=== PATIENT | male | born 1950 | race Caucasian/White ===

== ENCOUNTER → 2017-03-07 | Outpatient (CLI) | payer MEDICARE, MEDICAID, SELFPAY | PROVIDERS: Visit Provider Nurse Practitioner Family | DX: J06.9 Acute upper respiratory infection, unspecified (principal); K52.9 Noninfective gastroenteritis and colitis, unspecified | CPT/HCPCS: 87275; 87276 ==

== ENCOUNTER → 2017-07-27 08:53 | Outpatient (POV) | payer MEDICARE, MEDICAID, SELFPAY ==
[2017-07-27 09:18] VITALS: BP 190/94; PULSE 68; RESP 18; O2SAT 97; BMI 38.4
--- NOTE | 2017-07-27 09:43 | HMH.PAINSOAP ---
[facility] Pain Management SOAP Note Subjective:: Patient is a pleasant 67-year-old white male who presents today with his caretakers. Patient has been having severe bilateral shoulder pain. 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 Patient has had intra-articular shoulder injections in the past which he reported 100% relief for almost a year. Patient is interested in repeating these injections. Patient and I had a discussion about the risks and benefits and he wishes to proceed. I answered all the questions for the wildlife forensic geneticist as well. Patient rates his pain a 7 out of 10 today. ROS General: no recent weight change, no fever, no sleep disturbances Respiratory: no cough, no shortness of air, no recurring pulmonary infections Cardiovascular/Peripheral Vascular: No chest pain, No palpitations, no edema, no shortness of breath. Musculoskeletal: Bilateral shoulder pain Psychiatric: normal mood/ affect Neurological: [denies weakness in extremities], [denies balance issues] Objective:: Physical Exam General: Alert and oriented x3, no acute distress, pleasant and cooperative, [on room air] Lungs: Resps E/U, Symmetrical chest expansion, Eyes: PERRL Musculoskeletal: Range of motion bilateral shoulders somewhat guarded secondary to pain, deep tendon reflexes normal, strength in upper and lower extremities [5/5], normal gait noted Neurological: speech clear, consulting actuary equal, no gross sensory deficits Assessment:: Degenerative osteoarthritis bilateral shoulders Plan:: We will schedule a bilateral intra-articular shoulder injection. Patient has done well with this in the past. I believe that this would be beneficial. I will follow-up with the patient after his injection. Patient is not currently on any anticoagulation therapy. Patient has tried and failed anti-inflammatories This note was dictated using voice recognition software and may contain errors or omissions
--- NOTE | 2017-07-27 09:47 | P.CONS_ITS ---
[facility] Pain Management SOAP Note Subjective:: Patient is a pleasant 67-year-old white male who presents today with his caretakers. Patient has been having severe bilateral shoulder pain. 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 Patient has had intra- articular shoulder injections in the past which he reported 100% relief for almost a year. Patient is interested in repeating these injections. Patient and I had a discussion about the risks and benefits and he wishes to proceed. I answered all the questions for the plant and instrument engineer as well. Patient rates his pain a 7 out of 10 today. ROS General: no recent weight change, no fever, no sleep disturbances Respiratory: no cough, no shortness of air, no recurring pulmonary infections Cardiovascular/Peripheral Vascular: No chest pain, No palpitations, no edema, no shortness of breath. Musculoskeletal: Bilateral shoulder pain Psychiatric: normal mood/ affect Neurological: [denies weakness in extremities], [denies balance issues] Objective:: Physical Exam General: Alert and oriented x3, no acute distress, pleasant and cooperative, [ on room air] Lungs: Resps E/U, Symmetrical chest expansion, Eyes: PERRL Musculoskeletal: Range of motion bilateral shoulders somewhat guarded secondary to pain, deep tendon reflexes normal, strength in upper and lower extremities [5 /5], normal gait noted Neurological: speech clear, missile technician equal, no gross sensory deficits Assessment:: Degenerative osteoarthritis bilateral shoulders Plan:: We will schedule a bilateral intra-articular shoulder injection. Patient has done well with this in the past. I believe that this would be beneficial. I will follow-up with the patient after his injection. Patient is not currently on any anticoagulation therapy. Patient has tried and failed anti- inflammatories This note was dictated using voice recognition software and may contain errors or omissions
== END ==
PROVIDERS: Family Provider Internal Medicine Adolescent Medicine; PCP Internal Medicine Adolescent Medicine; Visit Provider Clinical Nurse Specialist Family Health
DX: M19.012 Primary osteoarthritis, left shoulder (principal); M19.011 Primary osteoarthritis, right shoulder
CPT/HCPCS: 99212

== ENCOUNTER → 2017-08-17 11:37 | Outpatient (POV) | payer MEDICARE, MEDICAID, SELFPAY ==
[2017-08-17 11:47] VITALS: BP 185/87; PULSE 60; RESP 18; O2SAT 98; BMI 29.2
--- NOTE | 2017-08-17 12:24 | HMH.PAINSOAP ---
[facility] Pain Management SOAP Note Subjective:: Patient is a pleasant 67-year-old white male who presents today for follow-up after bilateral shoulder injections. Patient states he is doing very well. He rates his pain a 0 out of 10 today. Patient would like to follow-up on an as-needed basis. ROS General: no recent weight change, no fever, no sleep disturbances Respiratory: no cough, no shortness of air, no recurring pulmonary infections Cardiovascular/Peripheral Vascular: No chest pain, No palpitations, no edema, no shortness of breath. Gastrointestinal: no incontinence, normal bowel movements reported Genitourinary: no incontinence Musculoskeletal: Bilateral shoulder pain Psychiatric: normal mood/ affect Neurological: [denies weakness in extremities], [denies balance issues] Objective:: Physical Exam General: Alert and oriented x3, no acute distress, pleasant and cooperative, [on room air] Lungs: Resps E/U, Symmetrical chest expansion, Eyes: PERRL Musculoskeletal: Range of motion bilateral shoulders somewhat guarded secondary to pain, deep tendon reflexes normal, strength in upper and lower extremities [5/5], normal gait noted Neurological: speech clear, economics lecturer equal, no gross sensory deficits Assessment:: Bilateral shoulder pain with myofascial pain and degenerative arthritis Plan:: We will follow-up with this patient on an as-needed basis. This note was dictated using voice recognition software and may contain errors or omissions
== END ==
PROVIDERS: Family Provider Internal Medicine Adolescent Medicine; PCP Internal Medicine Adolescent Medicine; Visit Provider Clinical Nurse Specialist Family Health
DX: M19.012 Primary osteoarthritis, left shoulder (principal); M19.011 Primary osteoarthritis, right shoulder
CPT/HCPCS: 99212

== ENCOUNTER 2017-10-23 09:02 | Observation (INO) ==
--- NOTE | 2017-10-23 09:19 | Emergency Department Note ---
ED Disposition Clinical Impression: Community acquired pneumonia Qualifiers: Laterality: left Lung location: lower lobe of lung Qualified Code(s): J18.1 - Lobar pneumonia, unspecified organism Disposition: Still a Patient Condition on Discharge: Good Referrals: Tommy Schmidt MD [Primary Care Provider] - - Critical Care Critical Care Time: No Attestation: On , the high probability of a clinically significant, sudden or life threatening deterioration of the following system(s) required my full and direct attention, intervention and personal management. The time I documented below is in addition to time spent performing reported procedures but includes the following listed in this critical care notation. Medical Decision Making - Chin Inquiry Pt receiving controlled substance: No Vital Signs: 10/23/17 09:09 10/23/17 09:43 10/23/17 10:03 Temperature 98.3 F Temperature Source Oral Pulse Rate [Left Brachial] 113 H 107 H 69 Respiratory Rate 20 18 20 Blood Pressure [Right Arm] 158/97 143/87 100/56 Blood Pressure Mean [Right Arm] 117 105 70 Blood Pressure Source [Right Arm] Automatic Cuff Automatic Cuff Automatic Cuff Blood Pressure Position [Right Arm] Sitting Sitting Sitting 02 Sat by Pulse Oximetry 92 L 92 L 98 Oxygen Delivery Method Room Air Room Air Room Air 10/23/17 11:22 10/23/17 11:38 10/23/17 12:56 Temperature Temperature Source Pulse Rate [Left Brachial] 101 H 94 H 98 H Respiratory Rate 18 Blood Pressure [Right Arm] 153/87 154/78 154/78 Blood Pressure Mean [Right Arm] 109 103 103 Blood Pressure Source [Right Arm] Automatic Cuff Automatic Cuff Automatic Cuff Blood Pressure Position [Right Arm] Sitting Sitting Sitting 02 Sat by Pulse Oximetry 92 L 92 L 94 L Oxygen Delivery Method Room Air Room Air Room Air - Lab Data Lab Results 10/23/17 09:20: WBC 12.1 H, RBC 4.47 L, Hgb 14.6, Hct 45.2, MCV 101.2 H, MCH 32.7 H, MCHC 32.3, RDW 13.7, Plt Count 231, MPV 7.7, Neut % (Auto) 85.5 H, Lymph % (Auto) 7.3 L, [place] % (Auto) 4.9, Eos % (Auto) 1.9, Baso % (Auto) 0.3, Neut # (Auto) 10.4 H, Lymph # (Auto) 0.9, [place] # (Auto) 0.6, Eos # (Auto) 0.2, Baso # (Auto) 0.0, Total Counted 100, Neutrophils % (Manual) 63, Band Neutrophils % 12.0 H, Lymphocytes % (Manual) 17, Atypical Lymphs % 2.0, Monocytes % (Manual) 6, Platelet Estimate Normal, Anisocytosis 1+, Macrocytosis 1+ 10/23/17 09:20: D-Dimer 1460 H* 10/23/17 09:48: Sodium 142, Potassium 4.1, Chloride 105, Carbon Dioxide 30, Anion Gap 11.1, BUN 21 H, Creatinine 1.37 H, Estimated Creat Clear 55, Estimated GFR 52 L, Est GFR ( Amer) 63, Glucose 132 H, Calcium 8.4 L, Total Bilirubin 0.4, AST 13 L, ALT 17, Alkaline Phosphatase 75, Total Protein 7.2, Albumin 3.6, Globulin 3.6 H, Albumin/Globulin Ratio 1.0 L, Amylase 81, Lipase 171 10/23/17 09:48: Troponin I < 0.02 10/23/17 10:00: Stool Occult Blood Negative 10/23/17 10:40: Lactate 1.4 Result diagrams: 10/23/17 09:20 10/23/17 09:48 Orders (Tests/Meds): ED MEDICATIONS Generic Name Dose Route Start Last Admin Trade Name Freq PRN Reason Stop Dose Admin Azithromycin 500 mg/ Sodium 250 mls @ 250 mls/hr 10/23/17 10:15 Chloride IV 11/06/17 10:14 Q24H ANURAG Protocol Ceftriaxone Sodium 1 gm/ 50 mls @ 100 mls/hr 10/23/17 10:15 Sodium Chloride IV 11/06/17 10:14 Q24H ANURAG Protocol Sodium Chloride 3 ml 10/23/17 10:05 Sodium Chloride 3% 15ml Neb IH 11/22/17 10:04 ONCE PRN INDUCE SPUTUM COLLECTION Discontinued Medications Generic Name Dose Route Start Last Admin Trade Name Freq PRN Reason Stop Dose Admin Sodium Chloride 1,000 mls @ 999 mls/hr 10/23/17 09:15 10/23/17 09:21 Sod Chlor 0.9% 1000ml Bag IV 10/23/17 10:15 999 mls/hr .Q1H1M ANURAG Administration Iopamidol 75 ml 10/23/17 12:18 [id number]; 75ml Vial IV 10/23/17 12:19 ONCE ONE Protocol Ondansetron HCl 4 mg 10/23/17 09:14 10/23/17 09:21 Zofran 4mg/2ml Vial IV 10/23/17 09:15 4 mg ONCE ONE Administration Sodium Chloride 50 ml 10/23/17 12:18 10/23/17 12:20 Rad-Ns 50ml Vial IV 10/23/17 12:19 50 ml ONCE ONE Administration Sodium Chloride 10 ml 10/23/17 12:18 10/23/17 12:20 Rad-Saline Flush 10ml Syringe IV 10/23/17 12:19 10 ml ONCE ONE Administration ORDERS Category Date Time Status Urinalysis-Acute [Urinalysis and Microscopic] Stat Lab 10/23/17 09:16 Ordered Blood Culture Stat Micro 10/23/17 13:40 Received Sputum Culture & Gram Stain Stat Micro 10/23/17 10:05 Ordered - CT Data CT Scan: Chest Time Received: 10:[address] Reviewed: Yes: I have viewed the radiologist's interpretation Findings Narrative: Abomen/Pelvis: IMPRESSION: 1. Left lower lobe pneumonia with chronic changes in the lung bases and nonspecific nodular opacity within the lingula incompletely imaged. Consider outpatient chest CT without and with contrast for further evaluation of this nodule. Mild bronchiectasis right lung base 2. Moderate-sized hiatal hernia. 3. Colonic diverticulosis with mild amount retained colonic feces. No evidence of diverticulitis. 4. Mildly thickened urinary bladder with right-sided bladder diverticulum Dictated By: Nawaf Walsh MD Signed By: <Electronically signed by Nawaf Walsh MD in OV> 10/23/17 0956 - ECG Data Tracing #1 EKG interpreted by Dandy Crowe MD: Rhythm: sinus tachycardia Rate: 101 [place]: Right Ectopy: none Conduction: normal ST Segment Changes: none T Wave Changes: none Q Waves: none No evidence of acute ischemia or injury - Physician Consults Physician Consulted: Roxana Time: 13:48 Reason -: Admission Comment/Response: Agrees to admit the patient to the hospital. We discussed the patient's clinical information, including history, exam, laboratory and radiology results and ED course. Per hospital procedure, I will write temporary bridge inpatient orders on the patient. Specific orders requested by the admitting physician: Continue antibiotics General Adult HPI - General Chief complaint: Abdominal Pain Stated complaint: coughing up blood dizzy Time Seen by Provider: 10/23/17 09:19 Mode of Arrival: Ambulatory Limitations: No Limitations Description of Symptoms (Recalled from ER Triage Doc. by RN): Pt reports he vomitted in the middle of the night, stated had blood in vomit. Pt reports has been feeling dizzy this morning. Pt mother reports pt has been c/o intermittent pain in epigastric area and heartburn for several weeks - History of Present Illness HPI narrative: The patient is mentally disabled. He supplemented by mother and sister. Mother states that the patient told her that in the middle of the night he threw up blood or coughed up blood or spit up blood. She did not see it. He complained of some epigastric pain here. He is a historian of questionable reliability, but endorses chest pain. Mother states that he coughed in the waiting room and spit something into the trash can, she thinks it was phlegm. No demented fever. No diarrhea, hematochezia or hematemesis. He has a history of Verdugo's esophagus and GERD. He has had several upper endoscopies by Dr. Lane. - Related Data Home Medications Medication Instructions Recorded Confirmed Aspirin 81 mg PO DAILY 10/23/17 10/23/17 Erythromycin Base [Zhen-Tab 250mg 250 mg PO AC 10/23/17 10/23/17 tablet] Levothyroxine Sodium 25 mcg PO DAILY 10/23/17 10/23/17 [Levothyroxine 25mcg (0.025mg) Tab] Lisinopril [Lisinopril 5mg Tablet] 5 mg PO DAILY 10/23/17 10/23/17 Methylcellulose [Citrucel] 479 gm PO DAILY 10/23/17 10/23/17 Omeprazole [Omeprazole 20mg 20 mg PO DAILY 10/23/17 10/23/17 Capsule] Polyethylene Glycol 3350 [Miralax 17 gm PO DAILY 10/23/17 10/23/17 Powder] Primidone [Mysoline 50mg tablet] 200 mg PO BID 10/23/17 10/23/17 Propranolol HCl [Inderal 20mg 20 mg PO DAILY 10/23/17 10/23/17 tablet] miSOPROStol [Cytotec 200mcg tablet] 400 mcg PO DAILY 10/23/17 10/23/17 raNITIdine HCl [Ranitidine HCl] 150 mg PO DAILY 10/23/17 10/23/17 Allergies Allergy/AdvReac Type Severity Reaction Status Date / Time lactose AdvReac Verified 10/23/17 09:17 [facility] History I have reviewed the patient's past medical history: Yes Medical History: Reports:: Hypertension Denies:: Diabetes Mellitus Type 1, Diabetes Mellitus Type 2 Other Medical History: Reports: Arthritis, Hypothyroidism Other Surgeries: Yes: EGD - Social History Alcohol Intake: never Occupational Status: disabled Housing: house Household Members: other - Psychiatric History Expresses thoughts of harming self/others: None Suicide Plan Description: No Plan Family Hx:: Unable to obtain ROS Obtained: Yes All systems reviewed & no additional complaints - Constitutional Constitutional: Denies fever(s) - Cardiovascular Cardiovascular: Reports chest pain - Respiratory Respiratory: Yes as per HPI, No dyspnea - Gastrointestinal Gastrointestingal: Reports: as per HPI, abdominal pain Physical Exam - General General appearance: alert, in no apparent distress - Head Head exam: atraumatic, normocephalic, normal inspection - Eye Eye exam: Present: normal appearance, PERRL, EOMI - ENT ENT exam: Present: mucous membranes moist - Neck Neck exam: Present: normal inspection, full ROM, trachea midline. Absent: meningismus, lymphadenopathy - Chest Chest inspection: Present: normal inspection, symmetric chest wall rise. Absent : tenderness - Respiratory Respiratory exam: Present: normal lung sounds bilaterally. Absent: respiratory distress - Cardiovascular Cardiovascular exam: Present: regular rate, normal rhythm. Absent: JVD - Abdominal Exam Abdominal exam: Present: soft, tenderness, normal bowel sounds. Absent: distention, guarding, rebound, rigidity Abdominal tenderness: Present: epigastrium, mild - Rectal Exam Rectal exam: Present: normal rectal tone. Absent: black stool, fecal impaction , mass, tenderness - Extremities Exam Extremities exam: Present: normal inspection, full ROM, normal capillary refill. Absent: calf tenderness - Back Exam Back exam: Present: normal inspection. Absent: tenderness - Neurological Exam Neurological exam: Present: alert, CN II-XII intact. Absent: motor sensory deficit - Psychiatric Psychiatric exam: Present: normal affect, normal mood - Skin Skin exam: Present: warm, dry, intact, normal color
[2017-10-23 09:36] LABS: Basophils % 0.3 % (0.1-2.0); Eosinophils # 0.2 K/mm3 (0.0-0.4); Eosinophils % 1.9 % (0.1-12.0); Hematocrit 45.2 % (42.0-52.0); Hemoglobin 14.6 g/dL (14.1-18.0); Lymphocytes # 0.9 K/mm3 (0.7-4.5); Lymphocytes % 7.3 K/mm3 (10-50); Mean Corpuscular HGB Conc 32.3 g/dL (31.8-35.4); Mean Corpuscular Hemoglobin 32.7 pg (27.0-31.2); Mean Corpuscular Volume 101.2 fl (80-94); Mean Platelet Volume 7.7 fl (7.4-10.4); Monocytes # 0.6 K/mm3 (0.1-1.0); Monocytes % 4.9 % (1.7-9.3); Neutrophils # 10.4 K/mm3 (1.8-7.8); Neutrophils % 85.5 % (37.0-80.0); Platelet Count 231 K/mm3 (142-424); Red Blood Count 4.47 M/mm3 (4.60-6.20); Red Cell Distribution Width 13.7 % (11.5-17.5); White Blood Count 12.1 K/mm3 (4.8-10.8)
[2017-10-23 10:01] LABS: Lymphocytes % 17 % (10-50); Monocytes % 6 % (2-9); Neutrophils % 63 % (42-76); Total Cells Counted 100
[2017-10-23 10:03] LABS: Anisocytosis 1+; Macrocytosis 1+
[2017-10-23 10:08] LABS: Albumin Level 3.6 gm/dL (3.4-5.0); Anion Gap 11.1 mEq/L (5-15); Bilirubin,Total 0.4 mg/dL (0.2-1.0); Calcium 8.4 mg/dL (8.5-10.1); Globulin 3.6 gm/dl (1.3-3.2); Potassium 4.1 mmoL/L (3.5-5.1); Total Protein,Serum 7.2 gm/dL (6.4-8.2)
[2017-10-23 14:36] LABS: Microscopic, Urine URINE MICROSCOPIC (MICROSCOPIC)
[2017-10-23 14:40] LABS: Appearance,Urine CLEAR (Clear); Bilirubin,Urine Negative (Negative); Blood, Urine Negative (Negative); Color,Urine YELLOW (Yellow); Glucose,Urine (UA) Negative (Negative); Ketones,Urine Negative (Negative); Leukocyte Esterase,Urine Negative (Negative); PH,Urine 6.5 (5.0-8.5); Protein,Urine Negative (Negative); Specific Gravity, Urine <= 1.005 (1.005-1.030); Urobilinogen,Urine 0.2 EU/dl (0.2)
[2017-10-23 15:06] LABS: Bacteria,Urine Trace /lpf; WBC,Urine Occasional #/hpf (0-3)
--- NOTE | 2017-10-23 15:33 | Pharmacy Consult Notes ---
[facility] Pharmacy VTE Monitoring - Patient Demographics Admission date: 10/23/17 Report Date: 10/23/17 Time: 15:33 Allergies/Adverse Reactions: Patient Allergies lactose Adverse Reaction (Verified 10/23/17 09:17) Height: 1.65 m Weight: 73.057 kg Patient Problems: Current Active Problems Community acquired pneumonia (Acute) - VTE Risk Labs: VTE Related Lab Results Hgb 14.6 g/dL (14.1-18.0) 10/23/17 09:20 Hct 45.2 % (42.0-52.0) 10/23/17 09:20 Plt Count 231 K/mm3 (142-424) 10/23/17 09:20 BUN 21 mg/dL (7-18) H 10/23/17 09:48 Creatinine 1.37 mg/dL (0.70-1.30) H 10/23/17 09:48 Estimated Creat Clear 55 mL/min (0-300) 10/23/17 09:48 Clinical Trial Participant: No - Prophylaxis VTE Prophylaxis Ordered?: Yes Types of VTE Prophylaxis: TEDS Knee High
--- NOTE | 2017-10-24 08:06 | History & Physical Report ---
*Admission Date: 10/23/17 *Chief complaint: Coughing/vomiting *History of present illness: 67-year-old white male who suffers from significant intellectual disability, primary flower arranger is his mother along with his sisters, who woke up the morning of admission with nausea and stated that he coughed/vomited up some blood. Was found to have lower p.o. intake and normal and just felt poorly with complaints of chest pain and abdominal pain. Came to the emergency department. Significant workup ensued, ruling out significant intra-abdominal pathology on CT scan, no evidence of anemia was noted, guaiac-negative screw was noted, elevated d-dimer was noted which prompted a CTA of his chest which revealed no evidence of PE but did note the presence of a pneumonia. Patient was admitted to hospital for IV antibiotics for pneumonia, possible concern about aspiration. When I examined patient on the afternoon of admission he was feeling better and had no complaints of abdominal pain. Of note his family did not witness any episodes of hematemesis or hemoptysis. [facility] History I have reviewed the patient's past medical history: Yes Medical History: Reports:: Hypertension Denies:: Diabetes Mellitus Type 1, Diabetes Mellitus Type 2 Other Medical History: Reports: Arthritis, Hypothyroidism Comment: Congenital intellectual disability, mother is his guardian. Other Surgeries: Yes: EGD - *Social History Educational Level: Attended Grade School Smoking Status: Never smoker Alcohol Intake: never Occupational Status: disabled Housing: house Household Members: family, other - Psychiatric History Expresses thoughts of harming self/others: None Suicide Plan Description: No Plan *Family Hx:: No significant family history Review of Systems - Review of Systems Review of systems:: unable to obtain Patient really cannot give a detailed history. Review of systems from family and ER records Meds Home Medications Medication Instructions Recorded Confirmed Type Aspirin 81 mg PO DAILY 10/23/17 10/23/17 History Erythromycin Base [Zhen-Tab 250mg 250 mg PO AC 10/23/17 10/23/17 History tablet] Levothyroxine Sodium 37.5 mcg PO DAILY 10/23/17 10/23/17 History [Levothyroxine 25mcg (0.025mg) Tab] Lisinopril [Lisinopril 5mg Tablet] 5 mg PO DAILY 10/23/17 10/23/17 History Methylcellulose [Citrucel] 1 pack PO DAILY 10/23/17 10/23/17 History Omeprazole [Omeprazole 20mg 20 mg PO BID 10/23/17 10/23/17 History Capsule] Polyethylene Glycol 3350 [Miralax 17 gm PO DAILY 10/23/17 10/23/17 History Powder] Primidone [Mysoline 50mg tablet] 200 mg PO BID 10/23/17 10/23/17 History Propranolol HCl [Inderal 20mg 20 mg PO BID 10/23/17 10/23/17 History tablet] miSOPROStol [Cytotec 200mcg tablet] 400 mcg PO DAILY 10/23/17 10/23/17 History raNITIdine HCl [Ranitidine HCl] 150 mg PO HS 10/23/17 10/23/17 History Allergies Allergy/AdvReac Type Severity Reaction Status Date / Time lactose AdvReac Verified 10/23/17 09:17 Exam Vital signs and Labs for Last 24 Hours: Temp Pulse Resp BP Pulse Ox 97.8 F 80 18 125/64 93 L 10/24/17 03:55 10/24/17 03:55 10/24/17 03:55 10/24/17 03:55 10/24/17 05:15 Laboratory Results - last 24 hr 10/23/17 09:20: WBC 12.1 H, RBC 4.47 L, Hgb 14.6, Hct 45.2, MCV 101.2 H, MCH 32.7 H, MCHC 32.3, RDW 13.7, Plt Count 231, MPV 7.7, Neut % (Auto) 85.5 H, Lymph % (Auto) 7.3 L, [place] % (Auto) 4.9, Eos % (Auto) 1.9, Baso % (Auto) 0.3, Neut # (Auto) 10.4 H, Lymph # (Auto) 0.9, [place] # (Auto) 0.6, Eos # (Auto) 0.2, Baso # (Auto) 0.0, Total Counted 100, Neutrophils % (Manual) 63, Band Neutrophils % 12.0 H, Lymphocytes % (Manual) 17, Atypical Lymphs % 2.0, Monocytes % (Manual) 6, Platelet Estimate Normal, Anisocytosis 1+, Macrocytosis 1+ 10/23/17 09:20: D-Dimer 1460 H* 10/23/17 09:48: Sodium 142, Potassium 4.1, Chloride 105, Carbon Dioxide 30, Anion Gap 11.1, BUN 21 H, Creatinine 1.37 H, Estimated Creat Clear 55, Estimated GFR 52 L, Est GFR ( Amer) 63, Glucose 132 H, Calcium 8.4 L, Total Bilirubin 0.4, AST 13 L, ALT 17, Alkaline Phosphatase 75, Total Protein 7.2, Albumin 3.6, Globulin 3.6 H, Albumin/Globulin Ratio 1.0 L, Amylase 81, Lipase 171 10/23/17 09:48: Troponin I < 0.02 10/23/17 10:00: Stool Occult Blood Negative 10/23/17 10:40: Lactate 1.4 10/23/17 14:34: Urine Color Yellow, Urine Appearance Clear, Urine pH 6.5, Ur Specific [place] <= 1.005, Urine Protein Negative, Urine Glucose (UA) Negative, Urine Ketones Negative, Urine Blood Negative, Urine Nitrate Negative, Urine Bilirubin Negative, Urine Urobilinogen 0.2, Ur Leukocyte Esterase Negative, Urine RBC None, Urine WBC Occasional, Ur Squamous Epith Cells 5-10, Urine Bacteria Trace I & O for Last 24 hours: Intake & Output 10/21/17 10/22/17 10/23/17 10/24/17 11:59 11:59 11:59 11:59 Intake Total 1360 / 1360 Output Total 1300 / 1300 Balance 60 / 60 Weight 160 lb 161 lb 1 oz Narrative: Patient is pleasant, cooperative, alert. Oriented 2. Lungs are clear in the anterior solomon. In the posterior solomon has crackles in the right base. Abdomen soft and nontender, heart rate regular without murmurs. ENT exam shows clear oropharynx, no JVD. No scleral icterus. No edema or clubbing, able to move all extremities well. No cranial deficits. Assessment and Plan (1) Community acquired pneumonia Current visit: Yes Status: Acute Qualifiers: Laterality: left Lung location: lower lobe of lung Qualified Code(s): J18.1 - Lobar pneumonia, unspecified organism Category: Medical Code(s): J18.9 - Pneumonia, unspecified organism ER workup appreciated. Pneumonia certainly could be the cause of his problems. Admit, IV antibiotics. Supportive care. Follow closely in the hospital.
--- NOTE | 2017-10-24 08:20 | Progress Note ---
Internal Medicine - PN: Subj *Date: 10/24/17 *Time: 08:18 Interval history: Patient overall feels a little better, has had no further vomiting, mild cough. Ate about half of his breakfast this morning which is improved over last night intake. Oropharynx clear, lungs have rhonchi in both posterior solomon, good air movement. No wheezing. Heart rate regular, abdomen is very slightly tender but improved over yesterday' s exam, no edema. Exam Vital signs and Labs for Last 24 Hours: Temp Pulse Resp BP Pulse Ox 97.6 F 95 H 18 153/82 92 L 10/24/17 08:00 10/24/17 08:00 10/24/17 08:00 10/24/17 08:00 10/24/17 08:00 Laboratory Results - last 24 hr 10/23/17 09:20: WBC 12.1 H, RBC 4.47 L, Hgb 14.6, Hct 45.2, MCV 101.2 H, MCH 32.7 H, MCHC 32.3, RDW 13.7, Plt Count 231, MPV 7.7, Neut % (Auto) 85.5 H, Lymph % (Auto) 7.3 L, [place] % (Auto) 4.9, Eos % (Auto) 1.9, Baso % (Auto) 0.3, Neut # (Auto) 10.4 H, Lymph # (Auto) 0.9, [place] # (Auto) 0.6, Eos # (Auto) 0.2, Baso # (Auto) 0.0, Total Counted 100, Neutrophils % (Manual) 63, Band Neutrophils % 12.0 H, Lymphocytes % (Manual) 17, Atypical Lymphs % 2.0, Monocytes % (Manual) 6, Platelet Estimate Normal, Anisocytosis 1+, Macrocytosis 1+ 10/23/17 09:20: D-Dimer 1460 H* 10/23/17 09:48: Sodium 142, Potassium 4.1, Chloride 105, Carbon Dioxide 30, Anion Gap 11.1, BUN 21 H, Creatinine 1.37 H, Estimated Creat Clear 55, Estimated GFR 52 L, Est GFR ( Amer) 63, Glucose 132 H, Calcium 8.4 L, Total Bilirubin 0.4, AST 13 L, ALT 17, Alkaline Phosphatase 75, Total Protein 7.2, Albumin 3.6, Globulin 3.6 H, Albumin/Globulin Ratio 1.0 L, Amylase 81, Lipase 171 10/23/17 09:48: Troponin I < 0.02 10/23/17 10:00: Stool Occult Blood Negative 10/23/17 10:40: Lactate 1.4 10/23/17 14:34: Urine Color Yellow, Urine Appearance Clear, Urine pH 6.5, Ur Specific [place] <= 1.005, Urine Protein Negative, Urine Glucose (UA) Negative, Urine Ketones Negative, Urine Blood Negative, Urine Nitrate Negative, Urine Bilirubin Negative, Urine Urobilinogen 0.2, Ur Leukocyte Esterase Negative, Urine RBC None, Urine WBC Occasional, Ur Squamous Epith Cells 5-10, Urine Bacteria Trace I & O for Last 24 hours: Intake & Output 10/21/17 10/22/17 10/23/17 10/24/17 11:59 11:59 11:59 11:59 Intake Total 1600 / 1600 Output Total 1300 / 1300 Balance 300 / 300 Weight 160 lb 161 lb 1 oz Assessment and Plan (1) Community acquired pneumonia Current visit: Yes Status: Acute Qualifiers: Laterality: left Lung location: lower lobe of lung Qualified Code(s): J18.1 - Lobar pneumonia, unspecified organism Category: Medical Code(s): J18.9 - Pneumonia, unspecified organism Overall improving. Discharge tomorrow if remains stable. (2) Hiatal hernia Current visit: Yes Status: Acute Category: Medical Code(s): K44.9 - Diaphragmatic hernia without obstruction or gangrene Reviewing scans with family they are concerned about hiatal hernia causing a lot of symptoms and I agree with this. They wonder about surgical repair, and I have told him this would require evaluation with Dr. Gonsalves at [facility] which I will accomplish as an outpatient. Assuming he goes home tomorrow we will increase PPI and H2 elizabeth to twice daily to help with symptomatology and gastritis from the hiatal hernia. (3) Kyphoscoliosis Current visit: Yes Status: Acute Category: Medical Code(s): M41.9 - Scoliosis, unspecified This complicates his hiatal hernia issues and posture.
--- NOTE | 2017-10-25 08:12 | Discharge Summary ---
General - General Admission date:: 10/23/17 Discharge date: 10/25/17 HPI HPI: 67-year-old white male who suffers from significant intellectual disability, primary goat driver is his mother along with his sisters, who woke up the morning of admission with nausea and stated that he coughed/vomited up some blood. Was found to have lower p.o. intake and normal and just felt poorly with complaints of chest pain and abdominal pain. Came to the emergency department. Significant workup ensued, ruling out significant intra-abdominal pathology on CT scan, no evidence of anemia was noted, guaiac-negative screw was noted, elevated d-dimer was noted which prompted a CTA of his chest which revealed no evidence of PE but did note the presence of a pneumonia. Patient was admitted to hospital for IV antibiotics for pneumonia, possible concern about aspiration. When I examined patient on the afternoon of admission he was feeling better and had no complaints of abdominal pain. Of note his family did not witness any episodes of hematemesis or hemoptysis. Hospital Course Hospital Course: Patient was admitted and placed on antibiotics for treatment pneumonia. He quickly recovered and even by the evening of admission was doing better. He was continued on intravenous antibiotics and observe for additional 48 hours. By the morning of October 25 patient was feeling better. He denies shortness of breath. He did not have cough. He was eating without difficulty. Patient was discharged to home. Objective Vital signs: Temp Pulse Resp BP Pulse Ox 97.7 F 78 18 160/79 91 L 10/25/17 07:44 10/25/17 07:44 10/25/17 07:44 10/25/17 07:44 10/25/17 07:44 no acute distress - *Routine Respiratory Exam Present: CTA bilaterally - *Routine Cardiovascular Exam Present: RRR DS: Diagnosis - Discharge Diagnosis (1) Community acquired pneumonia Status: Acute (2) Hiatal hernia Status: Acute (3) Kyphoscoliosis Status: Acute Discharge Plan - Patient Discharge Instructions ACTIVITY: Continue current activity DIET: continue same diet - Follow up Plan Follow up with: Tommy Schmidt MD [Primary Care Provider] - 10/28/17 Disposition: Home, Self-Prison Medications: Home Medications Medication Instructions Recorded Confirmed Type Aspirin 81 mg PO DAILY 10/23/17 10/23/17 History Erythromycin Base [Zhen-Tab 250mg 250 mg PO AC 10/23/17 10/23/17 History tablet] Levothyroxine Sodium 37.5 mcg PO DAILY 10/23/17 10/23/17 History [Levothyroxine 25mcg (0.025mg) Tab] Lisinopril [Lisinopril 5mg Tablet] 5 mg PO DAILY 10/23/17 10/23/17 History Methylcellulose [Citrucel] 1 pack PO DAILY 10/23/17 10/23/17 History Omeprazole [Omeprazole 20mg 20 mg PO BID 10/23/17 10/23/17 History Capsule] Polyethylene Glycol 3350 [Miralax 17 gm PO DAILY 10/23/17 10/23/17 History Powder] Primidone [Mysoline 50mg tablet] 200 mg PO BID 10/23/17 10/23/17 History Propranolol HCl [Inderal 20mg 20 mg PO BID 10/23/17 10/23/17 History tablet] miSOPROStol [Cytotec 200mcg tablet] 200 mcg PO BID 10/23/17 10/24/17 History Prescriptions/Medication Reconciliation: New Cefdinir [Omnicef 300mg Capsule] 300 mg PO BID #14 cap Continue Lisinopril [Lisinopril 5mg Tablet] 5 mg PO DAILY Erythromycin Base [Zhen-Tab 250mg tablet] 250 mg PO AC Aspirin 81 mg PO DAILY Primidone [Mysoline 50mg tablet] 200 mg PO BID Polyethylene Glycol 3350 [Miralax Powder] 17 gm PO DAILY Omeprazole [Omeprazole 20mg Capsule] 20 mg PO BID miSOPROStol [Cytotec 200mcg tablet] 200 mcg PO BID Propranolol HCl [Inderal 20mg tablet] 20 mg PO BID Levothyroxine Sodium [Levothyroxine 25mcg (0.025mg) Tab] 37.5 mcg PO DAILY Methylcellulose [Citrucel] 1 pack PO DAILY Changed raNITIdine HCl [Ranitidine HCl] 300 mg PO BID #60 tab
== END 2017-10-25 09:57 | disposition home or self-care (01) ==
LOC: ER 09:02 → 2ND 09:02
PROVIDERS: ADMIT Internal Medicine Adolescent Medicine; ATTEND Internal Medicine Adolescent Medicine
CPT/HCPCS: 36415; 71020; 71046; 71275; 74176; 80053; 81001; 82150; 82272; 83605; 83690; 84484; 85007; 85025; 85378; 87040; 93005; 96365; 96375; 99285; G0328; G0378; J0456; J2405

== ENCOUNTER → 2018-02-05 08:53 | Outpatient (CLI) | payer MEDICARE, MEDICAID, SELFPAY ==
--- NOTE | 2018-02-05 08:56 | FL_ITS ---
FL upper GI w air HISTORY: ITS.REASON: DYSPHAGIA ORDERING PHYSICIAN: Ovidio Gonsalves PATIENT AGE: 67 years Comparison: None FINDINGS: There is a small medium sized sliding hiatal hernia. There was moderate amount of reflux during the exam. No mass or ulcer. The duodenum has an unremarkable appearance. IMPRESSION: Small to medium sized sliding hiatal hernia with moderate gastroesophageal reflux FLUOROSCOPY TIME : 1 minute and 42 seconds.
== END ==
PROVIDERS: PCP Internal Medicine Adolescent Medicine; Visit Provider Surgery
DX: R13.10 Dysphagia, unspecified (principal)
CPT/HCPCS: 74247

== ENCOUNTER → 2018-03-26 11:49 | Outpatient (CLI) | payer MEDICARE, MEDICAID, SELFPAY ==
[2018-03-26 14:18] LABS: Anion Gap 7.5 mEq/L (5-15); Blood Urea Nitrogen 20 mg/dL (7-18); Calcium 8.7 mg/dL (8.5-10.1); Carbon Dioxide 34 mmol/L (21.0-32.0); Chloride 104 mmol/L (98-107); Creatinine,Serum 1.23 mg/dL (0.70-1.30); Estimated Glomerular Filt Rate 59 ml/min (>60); GFR (African American) 71 ML/MIN (>60); Glucose 64 mg/dL (74-106); Potassium 4.5 mmoL/L (3.5-5.1); Sodium 141 mmol/L (136-145); Thyroid Stimulating Hormone 6.37 uIU/ml (0.358-3.740)
== END ==
PROVIDERS: Visit Provider Internal Medicine Adolescent Medicine
DX: E03.9 Hypothyroidism, unspecified (principal); I10 Essential (primary) hypertension
CPT/HCPCS: 36415; 80048; 84443

== ENCOUNTER → 2018-04-02 13:35 | Outpatient (CLI) | payer MEDICARE, MEDICAID, SELFPAY ==
--- NOTE | 2018-04-02 14:34 | CT_ITS ---
CT abdomen pelvis wo con CLINICAL INDICATION: ITS.REASON: HEMATURIA ORDERING PHYSICIAN: Tommy Schmidt MD PATIENT AGE: 67 years COMPARISON: 10/23/2017 TECHNIQUE: Axial images obtained with sagittal and coronal reformats. All CT scans at the facility use one or more dose reduction, viz: automated exposure control, ma/kV adjustment per patient size (including targeted exams where dose is matched to indication, i.e. head), or iterative reconstruction technique. PROCEDURE: Oral Contrast: None IV Contrast: None . FINDINGS: Lower thorax: There is a moderate-sized hiatal hernia. There is increasing consolidation/volume loss within the lingula as well atelectatic changes or fibrosis in the right lower lobe. There is moderate pneumobilia in this patient that has had prior cholecystectomy. No focal liver lesion is evident. The spleen, adrenal glands, and pancreas are unremarkable. No renal or ureteral calculi. No renal mass. No intestinal obstruction or free air. There is mild thickening of the urinary bladder wall with minimal stranding of the fat around the urinary bladder suggesting cystitis. Fluid density is present in the right pelvic region adjacent to the bladder measuring 3.4 cm consistent with a bladder diverticulum similar to the previous exam no pelvic mass apparent. No evidence of diverticulitis or appendicitis. There are multiple unopacified bowel loops present within the abdomen/pelvis which could obscure or mimic pathology. If symptoms persists, consider repeating exam with IV and oral contrast administration. There is mild retained colonic feces. There is sigmoid diverticulosis with redundant sigmoid colon. No acute bony anomalies IMPRESSION: 1. No renal or ureteral calculi or hydronephrosis. 2. Thickening of the urinary bladder with minimal stranding of fat around the urinary bladder suggesting cystitis with a right-sided bladder diverticulum 3. Moderate-sized hiatal hernia. 4. Increasing consolidation/volume loss within the lingula. Chest CT with contrast may be of further value to exclude central obstructing lesion. 5. Other nonacute findings as described above
[2018-04-02 14:35] LABS: Basophils # 0.1 K/mm3 (0-0.2); Basophils % 1.3 % (0.1-2.0); Eosinophils # 0.2 K/mm3 (0.0-0.4); Eosinophils % 3.9 % (0.1-12.0); Hematocrit 48.1 % (42.0-52.0); Hemoglobin 14.9 g/dL (14.1-18.0); Lymphocytes # 1.5 K/mm3 (0.7-4.5); Lymphocytes % 28.7 % (10-50); Mean Corpuscular Hemoglobin 32.2 pg (27.0-31.2); Mean Corpuscular Volume 103.6 fl (80-94); Mean Platelet Volume 8.3 fl (7.4-10.4); Monocytes # 0.3 K/mm3 (0.1-1.0); Monocytes % 6.5 % (1.7-9.3); Neutrophils % 59.5 % (37.0-80.0); Platelet Count 257 K/mm3 (142-424); Red Blood Count 4.64 M/mm3 (4.60-6.20)
== END ==
PROVIDERS: PCP Internal Medicine Adolescent Medicine; Visit Provider Internal Medicine Adolescent Medicine
DX: R31.9 Hematuria, unspecified (principal)
CPT/HCPCS: 36415; 74150; 74176; 85025

== ENCOUNTER → 2019-09-02 10:00 | Outpatient (CLI) | payer MEDICARE, MEDICAID, SELFPAY ==
[2019-09-02 10:38] LABS: Basophils # 0.1 K/mm3 (0-0.2); Basophils % 0.7 % (0.1-2.0); Eosinophils # 0.3 K/mm3 (0.0-0.4); Eosinophils % 3.3 % (0.1-12.0); Hematocrit 40.6 % (42.0-52.0); Hemoglobin 12.7 g/dL (14.1-18.0); Lymphocytes # 1.7 K/mm3 (0.7-4.5); Lymphocytes % 21.6 % (10-50); Mean Corpuscular HGB Conc 31.2 g/dL (31.8-35.4); Mean Corpuscular Volume 96.1 fl (80-94); Mean Platelet Volume 7.6 fl (7.4-10.4); Monocytes # 0.4 K/mm3 (0.1-1.0); Monocytes % 4.8 % (1.7-9.3); Neutrophils # 5.3 K/mm3 (1.8-7.8); Neutrophils % 69.6 % (37.0-80.0); Platelet Count 298 K/mm3 (142-424); Red Blood Count 4.22 M/mm3 (4.60-6.20); White Blood Count 7.6 K/mm3 (4.8-10.8)
[2019-09-02 11:26] LABS: Chloride 102 mmol/L (98-107); Potassium 4.7 mmoL/L (3.5-5.1); Sodium 138 mmol/L (136-145)
[2019-09-02 11:28] LABS: Alanine Aminotransferase 12 U/L (12-78); Aspartate Amino Transferase 27 U/L (17-59); Blood Urea Nitrogen 21 mg/dl (9-20); Estimated Glomerular Filt Rate 60 ml/min (>60); GFR (African American) 73 ML/MIN (>60)
[2019-09-02 11:29] LABS: Albumin Level 4.4 g/dl (3.5-5.0); Albumin/Globulin Ratio 1.3 (1.1-1.8); Alkaline Phosphatase 66 U/L (38-126); Anion Gap 7.7 mEq/L (5-15); Bilirubin,Total 0.4 mg/dl (0.2-1.3); Calcium 11.3 mg/dl (8.4-10.2); Carbon Dioxide 33 mmol/L (22.0-30.0); Globulin 3.3 g/dL (1.3-3.2); Glucose 87 mg/dl (74-100); Lipase 164 U/L (23-300); Total Protein,Serum 7.7 g/dl (6.3-8.2)
[2019-09-02 12:00] LABS: Thyroid Stimulating Hormone 4.87 uIU/mL (0.465-4.68)
== END ==
PROVIDERS: Visit Provider Internal Medicine Adolescent Medicine
DX: I10 Essential (primary) hypertension (principal); E03.9 Hypothyroidism, unspecified; K21.9 Gastro-esophageal reflux disease without esophagitis
CPT/HCPCS: 36415; 80053; 83690; 84443; 85025

== ENCOUNTER → 2019-10-07 09:30 | Outpatient (CLI) | payer MEDICARE, MEDICAID, SELFPAY ==
[2019-10-07 10:52] LABS: Coronavirus 19 IgG Antibody Negative (Negative); Coronavirus 19 IgM Antibody Negative (Negative)
== END ==
PROVIDERS: Visit Provider Internal Medicine Gastroenterology
DX: Z01.818 Encounter for other preprocedural examination (principal)
CPT/HCPCS: 36415; 86328

== ENCOUNTER 2019-10-10 08:07 | Day surgery (SDC) | payer MEDICARE, MEDICAID, SELFPAY ==
[2019-10-05 13:27] VITALS: BMI 28.3
[2019-10-10] VITALS (7 sets, daily range): BP systolic 106–186; BP diastolic 59–93; PULSE 66–77; RESP 16–18; TEMP 36.4–36.6; O2SAT 95–99
--- NOTE | 2019-10-10 08:40 | P.PN_ITS ---
[facility] Anesthesia Checklist - Structural Data Admitted From: Home Planned Operative Procedure/s: egd Consent for Planned Operative Procedure(s) Verified: Yes - Additional verifications Anesthesia Reactions: No Hx Blood Transfusions: No Blood Transfusion Reaction: No - Anesthesia Plan Anesthesia Risk discussed: Yes Anesthesia Plan: Verified ASA Class: II Anesthesia Type: MAC [facility] History Medical History: Reports:: Gastroesophageal Reflux Disease(GERD), Hyperlipidemia, Hypertension Denies:: Cancer, Diabetes Mellitus Type 1, Diabetes Mellitus Type 2, Internal Pacemaker, MRSA, Seizures *Have you ever received a pneumonia vaccine?: Yes *Have you received a flu vaccine this season?: Yes Other Medical History: Reports: Arthritis, Hypothyroidism, Thyroid Disease, Other. Denies: Blood Transfusion Reaction Anesthesia experience/problems:: none Laterality Cases: Bilateral: Other Other Surgeries: Yes: Cholecystectomy, Colonoscopy, EGD, Other. No: Pacemaker Amputation: No Fractures: No - *Social History Last grade of school completed: 4th or less Smoking Status: Never smoker Alcohol Intake: never Substance Use Type: denies use *Occupational Status:: disabled Housing: house Household Members: family, caregiver *Travel in the last 8 weeks: None Family Hx:: Cancer, Diabetes, Hyperlipidemia, Heart Attack, Hypertension, Thyroid Disorder
--- NOTE | 2019-10-10 09:09 | HMH.PROC ---
[facility] Procedure Note Procedure Note:: Upper Endoscopy Procedure Report: Esophagogastroduodenoscopy with cold biopsies Endoscopost: Anthony Lane II, MD Referring Physician: Tommy Schmidt M.D. Date of Procedure: October 10, 2019 Equipment: Olympus GIF 180 standard upper endoscope Sedation: MAC sedation Indications: Mr. Browning is a 69-year-old gentleman who had Verdugo's esophagus diagnosed in May 2016 and biopsies at that time were indeterminate for dysplasia. He did have a repeat EGD in November 2016 and again biopsies were indefinite for dysplasia. The patient is on long-term PPI therapy (omeprazole 20 mg orally daily). His recent lab work showed hemoglobin 12.7 and hematocrit 40.6. The patient has no other abdominal complaints. Procedure: Prior to the procedure, a history and physical exam was performed, and patient's medications and allergies were reviewed. The risks, benefits and alternatives of the sedation and procedure were discussed with the patient. All questions were answered and informed consent was obtained. The patient was brought to the procedure room. Patient identification and proposed procedure were verified by the physician and the nurse. The patient was placed in a left lateral decubitus position and the scope was passed under direct vision. Throughout the procedure, the patient's blood pressure, pulse, and oxygen saturations were monitored continuously. The upper GI endoscopy was accomplished without difficulty. The patient tolerated the procedure well. Findings: The scope was passed directly into the upper esophagus and advanced to the third portion of the duodenum. The post bulbar duodenum and duodenal bulb were normal with normal mucosa and conniventes. The scope was withdrawn through a normal duodenal bulb and pylorus into the stomach. There was mild linear reactive gastropathy of the antrum. The remainder of the antrum, body and fundus of the stomach were grossly normal. Upon retroflexion there was a 4 cm hiatal hernia. The diaphragmatic hiatus was at 39 cm from the incisors. The gastroesophageal junction was at 35 cm from the incisors. The squamocolumnar junction/Z line was at 29/30 cm. There was a 5 to 6 cm segment of Verdugo's esophagus ([place] classification C5M6). Biopsies were taken at 33 cm and 31 cm from the incisors. Narrowband imaging was utilized and there was no evidence of any dysplastic appearing mucosa. There was no evidence of reflux esophagitis or strictures. The remainder of the esophageal mucosa was normal. Impression: 1. Verdugo's esophagus (5 to 6 cm) with [place] classification C5M6 2. Hiatal hernia (4 cm) medium sized Plan: I will follow-up the biopsies. The patient did have indeterminate for dysplasia previously but NBI did not identify evidence of dysplasia. Histologic findings will be more definitive. I would continue PPI therapy. We will determine surveillance (3 years) based upon no dysplasia on biopsies.
== END 2019-10-10 10:15 | disposition home or self-care (01) ==
PROVIDERS: PCP Internal Medicine Adolescent Medicine; Visit Provider Internal Medicine Gastroenterology
PROC: 0DJ08ZZ Inspection of Upper Intestinal Tract, Via Natural or Artificial Opening Endoscopic (ICD-10-PCS; CPT 43235; principal; 2019-10-10 09:30)
DX: K22.711 Barrett's esophagus with high grade dysplasia (principal); K44.9 Diaphragmatic hernia without obstruction or gangrene; E78.5 Hyperlipidemia, unspecified; I10 Essential (primary) hypertension; K21.9 Gastro-esophageal reflux disease without esophagitis; M19.90 Unspecified osteoarthritis, unspecified site; E03.9 Hypothyroidism, unspecified; Z90.49 Acquired absence of other specified parts of digestive tract; Z83.3 Family history of diabetes mellitus; Z82.49 Family history of ischemic heart disease and other diseases of the circulatory system; Z83.438 Family history of other disorder of lipoprotein metabolism and other lipidemia; Z83.49 Family history of other endocrine, nutritional and metabolic diseases
CPT/HCPCS: 43239; 88305

== ENCOUNTER 2019-11-12 09:00 | Emergency (ER) | payer MEDICARE, MEDICAID, SELFPAY ==
[2019-11-12 09:01] VITALS: BP 185/87; PULSE 88; RESP 14; TEMP 36.4; O2SAT 94; BMI 27.4
--- NOTE | 2019-11-12 09:02 | HMH.EDSYNC ---
ED Disposition Clinical Impression: Benign positional vertigo Qualifiers: Laterality: unspecified laterality Qualified Code(s): H81.10 - Benign paroxysmal vertigo, unspecified ear Disposition: Home, Self-Care Condition on Discharge: Good Prescriptions: Meclizine HCl [Meclizine 25mg Tab] 25 mg PO TID PRN #15 tab PRN Reason: Vertigo Prescription Printed Ondansetron [Zofran 4mg ODT] 4 mg PO Q6 PRN #10 tab.rapdis PRN Reason: Nausea Prescription Printed Referrals: Tommy Schmidt MD [Primary Care Provider] - 3 days - Critical Care Critical Care Time: No Attestation: On , the high probability of a clinically significant, sudden or life threatening deterioration of the following system(s) required my full and direct attention, intervention and personal management. The time I documented below is in addition to time spent performing reported procedures but includes the following listed in this critical care notation. Medical Decision Making - Medical Records Medical records reviewed: Yes: I reviewed the patient's medical records. - Chin Inquiry Pt receiving controlled substance: No Medical Decision Narrative: Patients with symptomology consistent with peripheral cause of vertigo rather than central. No cerebellar signs on exam. Tremor is baseline and he is able to [id number] and [id number] accurately. He is vertigo is only positional. I discussed extensively return precautions with mother who will be able to stay with the patient and return for any changes in symptoms. No recent illnesses that would prompt work-up for metabolic derangement, anemia. Given meclizine and Zofran, discharged home with prescription for the same. Advised follow-up with primary care provider in the next 2 to 3 days for reevaluation. Syncope HPI - General Stated Complaint: passed out 3 times this am Time Seen by Provider: 11/12/19 09:02 Mode of Arrival: Ambulatory Source of Information: Patient, Relative Limitations: No Limitations - History of Present Illness HPI narrative: 69-year-old male with a past medical history significant for mild mental retardation, hypertension, HLD, GERD, hypothyroid who presents to the emergency department for evaluation of vertigo that started yesterday evening. Patient has had several falls after getting up and walking, becoming dizzy and nauseous. Initially this was reported as syncope, but no loss of consciousness was ever witnessed and patient simply falls from feeling dizzy. He denies any chest pain, shortness of breath, recent fevers vomiting or diarrhea. His mother who accompanies him states that he has been eating and drinking well and has been in his baseline health. He does have a tremor and this is baseline for him. Patient states that he is dizzy primarily with movement and it gets better when sitting still. No visual changes, other lateralizing motor or sensory changes. - Related Data Home Medications Medication Instructions Recorded Confirmed Aspirin 81 mg PO DAILY 10/23/17 10/20/19 Methylcellulose [Citrucel] 1 pack PO DAILY 10/23/17 10/20/19 Omeprazole [Omeprazole 20mg 20 mg PO BID 10/23/17 10/20/19 Capsule] Primidone [Mysoline 50mg tablet] 200 mg PO BID 10/23/17 10/20/19 lisinopriL [Lisinopril 5mg 5 mg PO DAILY 10/23/17 10/20/19 Tablet] miSOPROStoL [Cytotec 200mcg tablet] 200 mcg PO BID 10/23/17 10/20/19 polyethylene glycoL 3350 [Miralax 17 gm PO DAILY 10/23/17 10/20/19 Powder] erythromycin 250 mg tablet,delayed 250 mg PO Q6H 01/31/19 10/20/19 release levothyroxine 25 mcg tablet 37.5 mcg PO DAILY tab 01/31/19 10/20/19 propranolol 10 mg tablet 10 mg PO BID 01/31/19 10/20/19 Previous Rx's Medication Instructions Recorded Meclizine HCl [Meclizine 25mg Tab] 25 mg PO TID PRN #15 tab 11/12/19 Ondansetron [Zofran 4mg ODT] 4 mg PO Q6 PRN #10 tab.rapdis 11/12/19 Allergies Allergy/AdvReac Type Severity Reaction Status Date / Time pregabali
[2019-11-12 10:10] VITALS: BP 167/91; PULSE 87; RESP 17; TEMP 36.7; O2SAT 100
== END 2019-11-12 10:11 | disposition home or self-care (01) ==
PROVIDERS: Emergency Provider Emergency Medicine; PCP Internal Medicine Adolescent Medicine
DX: H81.10 Benign paroxysmal vertigo, unspecified ear (principal); F79 Unspecified intellectual disabilities; I10 Essential (primary) hypertension; K21.9 Gastro-esophageal reflux disease without esophagitis; E03.9 Hypothyroidism, unspecified; E78.5 Hyperlipidemia, unspecified; Z90.49 Acquired absence of other specified parts of digestive tract; Z88.1 Allergy status to other antibiotic agents; Z79.899 Other long term (current) drug therapy
CPT/HCPCS: 99281

== ENCOUNTER 2020-05-25 10:27 | Day surgery (SDC) | payer MEDICARE, MEDICAID, SELFPAY ==
[2020-05-25] VITALS (15 sets, daily range): BP systolic 132–192; BP diastolic 76–96; PULSE 68–91; RESP 16–19; TEMP 36.7–37.1; O2SAT 91–99; BMI 27.4
--- NOTE | 2020-05-25 10:43 | XR_ITS ---
PROCEDURE: XR CHEST PORTABLE CLINICAL HISTORY: soa Shortness of breath COMPARISON: CT AGCHEST CT angio chest from 10/23/2017 CR CXR2V XR chest 2V from 10/23/2017 FINDINGS: The cardiomediastinal silhouette and pulmonary vascularity are within normal limits. Atelectatic changes are present in the right lower lobe medially. Patchy density is also present in the region of the lingula which may be due to an area infiltrate or atelectatic change. Airspace disease was present in this region also on 10/23/2017. Therefore, this could also represent an area postinflammatory scarring. No acute bony abnormalities. IMPRESSION: 1. Right lower lobe atelectatic change. 2. Airspace disease in the lingula which could reflect atelectasis, infiltrate, or scarring. Dictated by: Nawaf Walsh MD 05/25/2020 13:49 Nawaf Walsh MD in [place] 05/25/2020 13:49
--- NOTE | 2020-05-25 10:44 | CT_ITS ---
PROCEDURE: CT ABDOMEN PELVIS W CON CLINICAL INDICATION: vomiting COMPARISON: CT ABDPELWO CT abdomen pelvis wo con from 04/02/2018 TECHNIQUE: IV Contrast: 75ML Isovue 370 Oral Contrast None Axial images obtained with sagittal and coronal reformats. All CT scans at the facility use one or more dose reduction, viz: automated exposure control, ma/kV adjustment per patient size (including targeted exams where dose is matched to indication, i.e. head), or iterative reconstruction technique. FINDINGS: LOWER THORAX: Scarring is present in the lingula, right middle lobe, and both lower lobes. There is a medium-sized hiatal hernia.. ABDOMEN & PELVIS: There has been a prior cholecystectomy. There is pneumobilia the of the left lobe of the liver. The left lobe appears somewhat small but is not significantly changed. The spleen and adrenal glands have an unremarkable appearance. No obvious pancreatic mass. No renal or ureteral calculi or hydronephrosis. There are small parapelvic renal cysts. No evidence of appendicitis. There is colonic diverticulosis. There is a mild amount of retained colonic feces. No evidence of diverticulitis. No evidence of small-bowel obstruction. Motion artifact obscures fine detail of the bowel. There are few air-fluid levels of the small bowel. There is moderate thickening of the urinary bladder wall. No acute bony findings. IMPRESSION: 1. No change prior cholecystectomy with pneumobilia of the left hepatic lobe which appears somewhat small. 2. The bowel gas pattern is nonspecific. There are few air-fluid levels within nondistended small bowel. Enteritis is a consideration. 3. Colonic diverticulosis without evidence of diverticulitis. 4. There is urinary bladder wall thickening which may be seen with incomplete distension, chronic outflow obstruction, or cystitis. Dictated by: Nawaf Walsh MD 05/25/2020 12:34 Nawaf Walsh MD in [place] 05/25/2020 12:34
[2020-05-25 11:02] LABS: Chloride 106 mmol/L (98-107); Sodium 145 mmol/L (136-145)
[2020-05-25 11:03] LABS: Potassium 4.5 mmoL/L (3.5-5.1)
[2020-05-25 11:04] LABS: Basophils % 0.5 % (0.1-2.0); Eosinophils # 0.1 K/mm3 (0.0-0.4); Eosinophils % 1.1 % (0.1-12.0); Hematocrit 41.1 % (42.0-52.0); Hemoglobin 12.2 g/dL (14.1-18.0); Lymphocytes # 1.2 K/mm3 (0.7-4.5); Lymphocytes % 14.6 % (10-50); Mean Corpuscular HGB Conc 29.6 g/dL (31.8-35.4); Mean Corpuscular Hemoglobin 27.1 pg (27.0-31.2); Mean Corpuscular Volume 91.3 fl (80-94); Mean Platelet Volume 8.1 fl (7.4-10.4); Monocytes # 0.5 K/mm3 (0.1-1.0); Monocytes % 5.8 % (1.7-9.3); Neutrophils # 6.5 K/mm3 (1.8-7.8); Platelet Count 338 K/mm3 (142-424); Red Cell Distribution Width 15.2 % (11.5-17.5); White Blood Count 8.3 K/mm3 (4.8-10.8)
[2020-05-25 11:05] LABS: Alanine Aminotransferase 15 U/L (12-78); Alkaline Phosphatase 92 U/L (38-126); Anion Gap 12.5 mEq/L (5-15); Aspartate Amino Transferase 31 U/L (17-59); Bilirubin,Total 0.3 mg/dl (0.2-1.3); Blood Urea Nitrogen 27 mg/dl (9-20); Carbon Dioxide 31 mmol/L (22.0-30.0); Creatinine Clearance Estimated 50 mL/min (50-200); Estimated Glomerular Filt Rate 47 ml/min (>60); GFR (African American) 56 ML/MIN (>60); Lipase 286 U/L (23-300)
[2020-05-25 11:06] LABS: Albumin/Globulin Ratio 1.4 (1.1-1.8); Calcium 9.1 mg/dl (8.4-10.2); Globulin 3.7 g/dL (1.3-3.2); Glucose 92 mg/dl (74-100); Total Protein,Serum 8.7 g/dl (6.3-8.2)
--- NOTE | 2020-05-25 11:09 | HMH.EDGENADL ---
ED Disposition Clinical Impression: Hematemesis Disposition: Still a Patient Condition on Discharge: Good - Critical Care Critical Care Time: No Attestation: On 05/25/20, the high probability of a clinically significant, sudden or life threatening deterioration of the following system(s) required my full and direct attention, intervention and personal management. The time I documented below is in addition to time spent performing reported procedures but includes the following listed in this critical care notation. Medical Decision Making - Medical Records Medical records reviewed: Yes: I reviewed the patient's medical records. - Chin Inquiry Pt receiving controlled substance: No Vital Signs: 05/25/20 10:28 05/25/20 10:32 05/25/20 10:45 Temperature 98.1 F Temperature Source Oral Pulse Rate 91 H 85 Pulse Rate [Left Radial] 81 Respiratory Rate 18 Blood Pressure 192/96 H Blood Pressure [Right Arm] 192/96 H Blood Pressure Mean 126 Blood Pressure Mean [Right Arm] 128 Blood Pressure Source Blood Pressure Source [Right Arm] Automatic Cuff Blood Pressure Position Blood Pressure Position [Right Arm] Sitting 02 Sat by Pulse Oximetry 99 92 L 95 Oxygen Delivery Method Room Air 05/25/20 10:59 05/25/20 11:00 05/25/20 11:01 Temperature Temperature Source Pulse Rate 81 82 Pulse Rate [Left Radial] Respiratory Rate Blood Pressure 167/90 H Blood Pressure [Right Arm] Blood Pressure Mean 115 Blood Pressure Mean [Right Arm] Blood Pressure Source Blood Pressure Source [Right Arm] Blood Pressure Position Blood Pressure Position [Right Arm] 02 Sat by Pulse Oximetry 92 L 92 L Oxygen Delivery Method 05/25/20 11:15 05/25/20 11:17 05/25/20 11:29 Temperature Temperature Source Pulse Rate 83 81 79 Pulse Rate [Left Radial] Respiratory Rate Blood Pressure 176/93 H Blood Pressure [Right Arm] Blood Pressure Mean 123 Blood Pressure Mean [Right Arm] Blood Pressure Source Blood Pressure Source [Right Arm] Blood Pressure Position Blood Pressure Position [Right Arm] 02 Sat by Pulse Oximetry 92 L 93 L 92 L Oxygen Delivery Method 05/25/20 11:30 05/25/20 12:10 05/25/20 14:05 Temperature 98.1 F Temperature Source Oral Pulse Rate 83 83 Pulse Rate [Left Radial] Respiratory Rate 19 Blood Pressure 164/85 H 164/85 H Blood Pressure [Right Arm] Blood Pressure Mean 111 Blood Pressure Mean [Right Arm] Blood Pressure Source Automatic Cuff Blood Pressure Source [Right Arm] Blood Pressure Position Sitting Blood Pressure Position [Right Arm] 02 Sat by Pulse Oximetry 93 L 93 L Oxygen Delivery Method Room Air - Lab Data Lab Results 05/25/20 10:40: WBC 8.3, RBC 4.50 L, Hgb 12.2 L, Hct 41.1 L, MCV 91.3, MCH 27.1, MCHC 29.6 L, RDW 15.2, Plt Count 338, MPV 8.1, Neut % (Auto) 78.0, Lymph % (Auto) 14.6, [place] % (Auto) 5.8, Eos % (Auto) 1.1, Baso % (Auto) 0.5, Neut # (Auto) 6.5, Lymph # (Auto) 1.2, [place] # (Auto) 0.5, Eos # (Auto) 0.1, Baso # (Auto) 0.0 05/25/20 10:40: Sodium 145, Potassium 4.5, Chloride 106, Carbon Dioxide 31 H, Anion Gap 12.5, BUN 27 H, Creatinine 1.50 H, Estimated Creat Clear 50, Estimated GFR 47 L, Est GFR ( Amer) 56 L, Glucose 92, Calcium 9.1, Total Bilirubin 0.3, AST 31, ALT 15, Alkaline Phosphatase 92, Total Protein 8.7 H, Albumin 5.0, Globulin 3.7 H, Albumin/Globulin Ratio 1.4, Lipase 286 05/25/20 10:40: SARS-CoV-2 IgG Ab (Rapid) Positive A, SARS-CoV-2 IgM Ab (Rapid) Negative Result diagrams: 05/25/20 10:40 05/25/20 10:40 Orders (Tests/Meds): ED MEDICATIONS Discontinued Medications Generic Name Dose Route Start Last Admin Trade Name Freq PRN Reason Stop Dose Admin Iopamidol 75 ml 05/25/20 12:19 05/25/20 12:20 Iopamidol-370 (76%);100ml Bottle IV 05/25/20 12:20 75 ml ONCE ONE Administration Promethazine HCl 12.5 mg 05/25/20 11:14 05/25/20 1
--- NOTE | 2020-05-25 12:08 | PC.NURSE ---
pt returning from rad.
--- NOTE | 2020-05-25 12:15 | PC.NURSE ---
Rad at bedside
--- NOTE | 2020-05-25 14:33 | HMH.PROC ---
[facility] Procedure Note Procedure Note:: Upper Endoscopy Procedure Report: Esophagogastroduodenoscopy with cold biopsies Endoscopost: Anthony Lane II, MD Referring Physician: Tommy Schmidt M.D. Date of Procedure: May 25, 2020 Equipment: Olympus GIF 190 standard upper endoscope Sedation: MAC sedation Indications: Mr. Browning is a 70-year-old gentleman with hematemesis today. The patient was brought to the emergency department. His hemoglobin and hematocrit were 12.2 and 41.1. The patient does have a history of 6 cm Verdugo's esophagus and his last EGD was October 2019. He also has a moderate sized hiatal hernia. EGD is performed for further evaluation. Procedure: Prior to the procedure, a history and physical exam was performed, and patient's medications and allergies were reviewed. The risks, benefits and alternatives of the sedation and procedure were discussed with the patient. All questions were answered and informed consent was obtained. The patient was brought to the procedure room. Patient identification and proposed procedure were verified by the physician and the nurse. The patient was placed in a left lateral decubitus position and the scope was passed under direct vision. Throughout the procedure, the patient's blood pressure, pulse, and oxygen saturations were monitored continuously. The upper GI endoscopy was accomplished without difficulty. The patient tolerated the procedure well. Findings: The scope was passed directly into the upper esophagus and advanced to the third portion of the duodenum. The post bulbar duodenum and duodenal bulb were normal with normal mucosa and conniventes. The scope was withdrawn through a normal duodenal bulb and pylorus into the stomach. There was evidence of linear reactive gastropathy of the antrum. Upon retroflexion there was a moderate to large hiatal hernia (5 to 6 cm) with linear Kody's ulcerations/Kody's erosions. There was a minor amount of heme identified with these Kody's ulcerations. There was no active bleeding or visible vessel. The scope was withdrawn into the esophagus. There was evidence of 6 cm Verdugo's esophagus (long segment Verdugo's esophagus). Full surveillance was not performed but biopsies were obtained within the Verdugo's esophagus. Biopsies were also taken from the stomach. Impression: 1. Moderate to large hiatal hernia (5 to 6 cm) with linear Kody's ulcerations/Kody's erosions 2. Verdugo's esophagus (6 cm) Plan: I will follow-up the biopsies. The patient's hematemesis is secondary to the Kody's erosions. This is going to be self-limited and there is no further active bleeding. I would continue PPI therapy (omeprazole twice daily). I will discuss the case with family and emergency department.
--- NOTE | 2020-05-25 14:45 | SUR.PHASEII ---
REPORT GIVEN TO CONNOR HONG RN
[2020-05-25 14:52] LABS: Coronavirus 19 IgG Antibody Positive (Negative); Coronavirus 19 IgM Antibody Negative (Negative)
== END 2020-05-25 15:12 | disposition home or self-care (01) ==
LOC: ER 13:52 → OR 14:01
PROVIDERS: Emergency Provider Emergency Medicine; PCP Internal Medicine Adolescent Medicine; Visit Provider Internal Medicine Gastroenterology
PROC: 0DJ08ZZ Inspection of Upper Intestinal Tract, Via Natural or Artificial Opening Endoscopic (ICD-10-PCS; CPT 43235; principal; 2020-05-25 14:00)
DX: K44.9 Diaphragmatic hernia without obstruction or gangrene (principal); K22.70 Barrett's esophagus without dysplasia; K21.9 Gastro-esophageal reflux disease without esophagitis; E78.5 Hyperlipidemia, unspecified; I10 Essential (primary) hypertension; Z79.82 Long term (current) use of aspirin; Z79.899 Other long term (current) drug therapy; Z88.8 Allergy status to other drugs, medicaments and biological substances; Z80.9 Family history of malignant neoplasm, unspecified; Z83.438 Family history of other disorder of lipoprotein metabolism and other lipidemia; Z83.49 Family history of other endocrine, nutritional and metabolic diseases; Z82.3 Family history of stroke
CPT/HCPCS: 43239; 71045; 74177; 80053; 83690; 85025; 86328; 88305; 96374; 99283; Q9967

== ENCOUNTER → 2020-06-25 08:39 | Outpatient (CLI) | payer MEDICARE, MEDICAID, SELFPAY ==
[2020-06-25 08:57] LABS: Basophils % 0.4 % (0.1-2.0); Eosinophils # 0.2 K/mm3 (0.0-0.4); Eosinophils % 2.9 % (0.1-12.0); Lymphocytes # 1.2 K/mm3 (0.7-4.5); Lymphocytes % 23.2 % (10-50); Mean Corpuscular HGB Conc 30.5 g/dL (31.8-35.4); Mean Corpuscular Hemoglobin 27.3 pg (27.0-31.2); Mean Corpuscular Volume 89.3 fl (80-94); Mean Platelet Volume 8.4 fl (7.4-10.4); Monocytes # 0.3 K/mm3 (0.1-1.0); Monocytes % 5.1 % (1.7-9.3); Neutrophils # 3.5 K/mm3 (1.8-7.8); Neutrophils % 68.5 % (37.0-80.0); Platelet Count 245 K/mm3 (142-424); Red Blood Count 4.03 M/mm3 (4.60-6.20); Red Cell Distribution Width 15.3 % (11.5-17.5); White Blood Count 5.1 K/mm3 (4.8-10.8)
[2020-06-25 09:57] LABS: Alanine Aminotransferase 15 U/L (12-78); Albumin Level 4.1 g/dl (3.5-5.0); Albumin/Globulin Ratio 1.4 (1.1-1.8); Alkaline Phosphatase 77 U/L (38-126); Anion Gap 12.9 mEq/L (5-15); Aspartate Amino Transferase 24 U/L (17-59); Bilirubin,Total 0.3 mg/dl (0.2-1.3); Blood Urea Nitrogen 18 mg/dl (9-20); Calcium 9.1 mg/dl (8.4-10.2); Carbon Dioxide 26 mmol/L (22.0-30.0); Chloride 105 mmol/L (98-107); Cholesterol 206 mg/dl (140-200); Estimated Glomerular Filt Rate 55 ml/min (>60); GFR (African American) 66 ML/MIN (>60); Glucose 203 mg/dl (74-100); HDL Cholesterol 51 mg/dl (40-60); Potassium 4.9 mmoL/L (3.5-5.1); Sodium 139 mmol/L (136-145); Total Protein,Serum 7.1 g/dl (6.3-8.2); Triglycerides 121 mg/dl (30-150); VLDL Cholesterol 24 mg/dL (0-40)
[2020-06-25 10:08] LABS: Direct LDL Cholesterol 120.57 mg/dL (100-129)
== END ==
PROVIDERS: Visit Provider Internal Medicine Adolescent Medicine
DX: I10 Essential (primary) hypertension (principal); E03.9 Hypothyroidism, unspecified; K22.70 Barrett's esophagus without dysplasia
CPT/HCPCS: 36415; 80053; 80061; 84443; 85025

== ENCOUNTER 2021-10-07 09:51 | Emergency (ER) | payer MEDICARE, MEDICAID, SELFPAY ==
[2021-10-07 10:00] VITALS: BP 187/105; PULSE 88; RESP 18; TEMP 36.5; O2SAT 97; BMI 30.2
--- NOTE | 2021-10-07 10:36 | PC.NURSE ---
PT AMBULATING TO BR WITH CONTINUITY TESTER
[2021-10-07 11:01] VITALS: BP 142/88; PULSE 73; RESP 18; O2SAT 100
[2021-10-07 11:01] LABS: Adenovirus F 40/41, stool Not Detected (NotDetected); Astrovirus Not Detected (NotDetected); Campylobacter Not Detected (NotDetected); Clostridium Difficile A/B, PCR Not Detected (NotDetected); Cryptosporidium Not Detected (NotDetected); Cyclospora Cayetanesis Not Detected (NotDetected); Entamoeba histolytica Not Detected (NotDetected); Enteroaggregative E coli Not Detected (NotDetected); Enteropathogenic E coli Not Detected (NotDetected); Enterotoxigenic E coli Not Detected (NotDetected); Giardia lamblia Not Detected (NotDetected); Microscopic, Urine URINE MICROSCOPIC (MICROSCOPIC); Norovirus Not Detected (NotDetected); Plesimonas Shigalloides, PCR Not Detected (NotDetected); Rotavirus A Not Detected (NotDetected); Salmonella, PCR Not Detected (NotDetected); Sapovirus Not Detected (NotDetected); Shiga-like toxin E coli Not Detected (NotDetected); Shigella Enterovasive E coli Not Detected (NotDetected); Vibrio Cholerae Not Detected (NotDetected); Vibrio, PCR Not Detected (NotDetected); Yersinia Entercolitica, PCR Not Detected (NotDetected)
[2021-10-07 11:02] LABS: Basophils # 0.1 K/mm3 (0-0.2); Basophils % 1.2 % (0.1-2.0); Eosinophils # 0.2 K/mm3 (0.0-0.4); Eosinophils % 3.5 % (0.1-12.0); Hematocrit 34.4 % (42.0-52.0); Hemoglobin 10.1 g/dL (14.1-18.0); Lymphocytes # 1.3 K/mm3 (0.7-4.5); Lymphocytes % 23.1 % (10-50); Mean Corpuscular HGB Conc 29.3 g/dL (31.8-35.4); Mean Corpuscular Hemoglobin 26.2 pg (27.0-31.2); Mean Corpuscular Volume 89.4 fl (80-94); Mean Platelet Volume 9.6 fl (7.4-10.4); Monocytes # 0.5 K/mm3 (0.1-1.0); Monocytes % 9.3 % (1.7-9.3); Neutrophils # 3.5 K/mm3 (1.8-7.8); Platelet Count 307 K/mm3 (142-424); Red Blood Count 3.84 M/mm3 (4.60-6.20); Red Cell Distribution Width 16.3 % (11.5-17.5); White Blood Count 5.6 K/mm3 (4.8-10.8)
[2021-10-07 11:08] LABS: Appearance,Urine CLEAR (Clear); Bilirubin,Urine Negative (Negative); Blood, Urine Negative (Negative); Color,Urine YELLOW (Yellow); Glucose,Urine (UA) Negative (Negative); Ketones,Urine Negative (Negative); Leukocyte Esterase,Urine Negative (Negative); Nitrate,Urine Negative (Negative); Protein,Urine Negative (Negative); Urobilinogen,Urine 0.2 EU/dl (0.2)
[2021-10-07 11:09] LABS: Chloride 106 mmol/L (98-107); Occult Blood,Stool Negative (Negative); Potassium 4.3 mmoL/L (3.5-5.1); Sodium 142 mmol/L (136-145)
[2021-10-07 11:12] LABS: Alanine Aminotransferase 20 U/L (12-78); Albumin/Globulin Ratio 1.3 (1.1-1.8); Alkaline Phosphatase 77 U/L (38-126); Anion Gap 8.3 mEq/L (5-15); Aspartate Amino Transferase 30 U/L (17-59); Blood Urea Nitrogen 24 mg/dl (9-20); Calcium 9.1 mg/dl (8.4-10.2); Carbon Dioxide 32 mmol/L (22.0-30.0); Creatinine Clearance Estimated 55 mL/min (50-200); Estimated Glomerular Filt Rate 55 ml/min (>60); GFR (African American) 66 ML/MIN (>60); Globulin 3.2 g/dL (1.3-3.2); Glucose 73 mg/dl (74-100); Total Protein,Serum 7.2 g/dl (6.3-8.2)
[2021-10-07 11:15] LABS: Bilirubin,Total < 0.1 mg/dl (0.2-1.3)
[2021-10-07 11:30] VITALS: BP 159/88; PULSE 69; RESP 18; O2SAT 96
--- NOTE | 2021-10-07 11:41 | PC.NURSE ---
SPOKE WITH PT'S MOM AND UPDATED HER
--- NOTE | 2021-10-07 11:44 | HMH.EDGENADL ---
ED Disposition Clinical Impression: Rectal bleeding Diarrhea Qualifiers: Diarrhea type: unspecified type Qualified Code(s): R19.7 - Diarrhea, unspecified Disposition: Home, Self-Care Condition on Discharge: Good Instructions: DI for Rectal Bleeding, DI for Diarrhea and Traveler's Diarrhea -- Adult Additional Instructions: Pepto-Bismol for diarrhea. Observe for further episodes of rectal bleeding and contact Dr. Schmidt if this occurs. Follow-up results of diarrhea panel with Dr. Schmidt. Return the emergency department if worsening. Referrals: Tommy Schmidt MD [Primary Care Provider] - - Critical Care Critical Care Time: No Attestation: On 10/07/21, the high probability of a clinically significant, sudden or life threatening deterioration of the following system(s) required my full and direct attention, intervention and personal management. The time I documented below is in addition to time spent performing reported procedures but includes the following listed in this critical care notation. Medical Decision Making - Chin Inquiry Pt receiving controlled substance: No Vital Signs: 10/07/21 10:00 10/07/21 11:01 10/07/21 11:30 Temperature 97.7 F Temperature Source Oral Pulse Rate 73 69 Pulse Rate [Right Radial] 88 Respiratory Rate 18 18 18 Blood Pressure 142/88 H 159/88 H Blood Pressure [Right Arm] 187/105 H Blood Pressure Mean 109 103 Blood Pressure Mean [Right Arm] 132 Blood Pressure Source [Right Arm] Automatic Cuff Blood Pressure Position [Right Arm] Sitting 02 Sat by Pulse Oximetry 97 100 96 Oxygen Delivery Method Room Air - Lab Data Lab Results 10/07/21 10:50: WBC 5.6, RBC 3.84 L, Hgb 10.1 L, Hct 34.4 L, MCV 89.4, MCH 26.2 L, MCHC 29.3 L, RDW 16.3, Plt Count 307, MPV 9.6, Neut % (Auto) 63.0, Lymph % (Auto) 23.1, Gem % (Auto) 9.3, Eos % (Auto) 3.5, Baso % (Auto) 1.2, Neut # (Auto) 3.5, Lymph # (Auto) 1.3, Gem # (Auto) 0.5, Eos # (Auto) 0.2, Baso # (Auto) 0.1 10/07/21 10:50: Sodium 142, Potassium 4.3, Chloride 106, Carbon Dioxide 32 H, Anion Gap 8.3, BUN 24 H, Creatinine 1.30 H, Estimated Creat Clear 55, Estimated GFR 55 L, Est GFR ( Amer) 66, Glucose 73 L, Calcium 9.1, Total Bilirubin < 0.1 L, AST 30, ALT 20, Alkaline Phosphatase 77, Total Protein 7.2, Albumin 4.0, Globulin 3.2, Albumin/Globulin Ratio 1.3 10/07/21 10:50: Stool Occult Blood Negative 10/07/21 10:50: Urine Color Yellow, Urine Appearance Clear, Urine pH 6.0, Ur Specific [place] 1.020, Urine Protein Negative, Urine Glucose (UA) Negative, Urine Ketones Negative, Urine Blood Negative, Urine Nitrate Negative, Urine Bilirubin Negative, Urine Urobilinogen 0.2, Ur Leukocyte Esterase Negative, Urine RBC None, Urine WBC None, Ur Squamous Epith Cells None, Urine Bacteria None Result diagrams: 10/07/21 10:50 10/07/21 10:50 Orders (Tests/Meds): ORDERS Category Date Time Status Diarrhea 6-11 Panel, Cdiff PCR Stat Lab 10/07/21 10:50 Received - Physician Consults Physician Consulted: Roxana Time: 12:10 Reason -: Pt condition Comment/Response: Discharge patient for outpatient follow-up. Pepto-Bismol for diarrhea. Family will observe for further episodes of rectal bleeding and contact Dr. Schmidt if this occurs. He will follow-up the patient's diarrhea panel results. General Adult HPI - General Chief complaint: GI Bleed Stated complaint: rectal bleeding Time Seen by Provider: 10/07/21 11:44 Mode of Arrival: Ambulatory Limitations: No Limitations Description of Symptoms (Recalled from ER Triage Doc. by RN): Pt [facility] at [facility] this [facility], states staff helped pt to restroom, pt had diarrhea with bright red blood noted. Staff from adult day care center that is present with pt states pt has hx of GI issues and hemmrrhoids. Pt went to restroom prior to triage states no blood noted but was diarrhea like stool. Pt denies abd pain, pt non-tender to palpation. Pt denies difficulty with BM th
[2021-10-07 12:00] VITALS: BP 187/101; PULSE 71; RESP 18; O2SAT 98
--- NOTE | 2021-10-07 12:06 | PC.NURSE ---
DR RUIZ IN WITH PT
--- NOTE | 2021-10-07 12:10 | PC.NURSE ---
MESSAGE LEFT WITH DR DELATORRE TO CALL US BACK
--- NOTE | 2021-10-07 12:13 | PC.NURSE ---
speaking with Dr Schmidt
--- NOTE | 2021-10-07 12:18 | PC.NURSE ---
SPOKE WITH PT'S MOM AND UPDATED HER ON LAB FINDING AND THE D/C PLAN TO GO BACK TO CENTER WITH REVIVAL CLERK
--- NOTE | 2021-10-07 12:23 | PC.NURSE ---
PT AMBULATING TO BR WITH CAREGIVER
[2021-10-07 12:30] VITALS: BP 178/98; PULSE 78; RESP 16; TEMP 36.6; O2SAT 98
== END 2021-10-07 12:31 | disposition home or self-care (01) ==
PROVIDERS: Emergency Provider Emergency Medicine; PCP Internal Medicine Adolescent Medicine
DX: R19.7 Diarrhea, unspecified (principal); I10 Essential (primary) hypertension; E78.5 Hyperlipidemia, unspecified
CPT/HCPCS: 80053; 81001; 82272; 85025; 87506; 99283; G0328

== ENCOUNTER 2022-12-05 21:42 | Emergency (ER) | payer MEDICARE, MEDICAID, SELFPAY ==
[2022-12-05 21:42] VITALS: BP 194/81; PULSE 130; RESP 24; TEMP 36.7; O2SAT 96; BMI 35.9
--- NOTE | 2022-12-05 22:01 | ECG_ITS ---
APPROVED REPORT Exam: Resting ECG HR:98 bpm ECG Measurements Heart Rate 98 AXES HI 154 P 67 QRSd 95 QRS 107 QT 308 T 50 QTc 363 Conclusion SINUS RHYTHM WITH OCCASIONAL SUPRAVENTRICULAR PREMATURE COMPLEXES RIGHT AXIS DEVIATION [QRS AXIS > 100] LOW QRS VOLTAGE IN PRECORDIAL LEADS [QRS DEFLECTION < 1.0 mV IN CHEST LEADS] ABNORMAL ECG UNCONFIRMED REPORT Electronically signed by : Tommy Schmidt MD 12/08/2022 17:15:22
[2022-12-05 22:03] VITALS: BMI 35.9
--- NOTE | 2022-12-05 22:03 | XR_ITS ---
PROCEDURE INFORMATION: Exam: XR Chest Exam date and time: 12/05/2022 10:32 PM Age: 72 years old Clinical indication: Shortness of breath; Additional info: SOA TECHNIQUE: Imaging protocol: Radiologic exam of the chest. Views: 1 view. COMPARISON: CR XR CHEST PORTABLE 05/25/2020 12:16 PM FINDINGS: Lungs: Left mid lung infiltrate versus scarring similar to comparison. Pleural spaces: Unremarkable. No pleural effusion. No pneumothorax. Heart/Mediastinum: Unremarkable. No cardiomegaly. Bones/joints: Unremarkable. IMPRESSION: Left mid lung infiltrate versus scarring similar to comparison.
[2022-12-05 22:08] VITALS: BP 180/83
[2022-12-05 22:43] VITALS: BP 145/90; PULSE 95; RESP 21; O2SAT 95
[2022-12-05 22:43] LABS: Microscopic, Urine URINE MICROSCOPIC (MICROSCOPIC)
[2022-12-05 22:46] LABS: Basophils # 0.1 K/mm3 (0-0.2); Basophils % 1.1 % (0.1-2.0); Eosinophils # 0.2 K/mm3 (0.0-0.4); Eosinophils % 2.9 % (0.1-12.0); Lymphocytes % 16.2 % (10-50); Mean Corpuscular HGB Conc 29.4 g/dL (31.8-35.4); Mean Corpuscular Volume 81.9 fl (80-94); Mean Platelet Volume 9.2 fl (7.4-10.4); Monocytes # 0.5 K/mm3 (0.1-1.0); Monocytes % 8.1 % (1.7-9.3); Neutrophils # 4.5 K/mm3 (1.8-7.8); Neutrophils % 71.8 % (37.0-80.0); Platelet Count 269 K/mm3 (142-424); Red Blood Count 4.15 M/mm3 (4.60-6.20); Red Cell Distribution Width 17.3 % (11.5-17.5); White Blood Count 6.3 K/mm3 (4.8-10.8)
[2022-12-05 22:52] LABS: Chloride 105 mmol/L (98-107); Potassium 4.2 mmoL/L (3.5-5.1); Sodium 140 mmol/L (136-145)
[2022-12-05 22:53] LABS: Appearance,Urine CLEAR (Clear); Bilirubin,Urine Negative (Negative); Blood, Urine Negative (Negative); Color,Urine YELLOW (Yellow); Glucose,Urine (UA) Negative (Negative); Ketones,Urine Negative (Negative); Leukocyte Esterase,Urine Negative (Negative); Nitrate,Urine Negative (Negative); PH,Urine 6.5 (5.0-8.5); Protein,Urine Negative (Negative); Urobilinogen,Urine 0.2 EU/dl (0.2)
[2022-12-05 22:55] LABS: Alanine Aminotransferase 22 U/L (12-78); Albumin Level 3.9 g/dl (3.5-5.0); Albumin/Globulin Ratio 1.1 (1.1-1.8); Alkaline Phosphatase 66 U/L (38-126); Anion Gap 10.2 mEq/L (5-15); Aspartate Amino Transferase 29 U/L (17-59); Blood Urea Nitrogen 26 mg/dl (9-20); Carbon Dioxide 29 mmol/L (22.0-30.0); Creatinine Clearance Estimated 75 mL/min (50-200); Estimated Glomerular Filt Rate 60 ml/min (>60); GFR (African American) 72 ML/MIN (>60); Globulin 3.5 g/dL (1.3-3.2); Total Protein,Serum 7.4 g/dl (6.3-8.2)
[2022-12-05 22:56] LABS: Bilirubin,Total 0.1 mg/dl (0.2-1.3); Calcium 8.6 mg/dl (8.4-10.2); Glucose 168 mg/dl (74-100); Lactic Acid 1.6 mmol/L (0.7-2.1)
[2022-12-05 23:15] LABS: Troponin I < 0.01 ng/ml (0.00-0.034)
--- NOTE | 2022-12-05 23:18 | HMH.EDSOB ---
Discharge Plan Disposition Patient Disposition: Home, Self-Care Condition: Good Chief Complaint: Shortness of Breath/Dyspnea Prescriptions Prescriptions: No Action propranolol 10 mg tablet 10 mg PO BID levothyroxine 50 mcg tablet 50 mcg PO DAILY Patient Comments: TAKE 1 TABLET BY MOUTH ONCE DAILY FOR 90 DAYS misoprostol 100 mcg tablet 100 mcg PO DAILY finasteride 5 mg tablet 5 mg PO DAILY primidone 50 MG tablet 200 mg PO BID misoprostol 200 MCG tablet 200 mcg PO BID omeprazole 20 MG capsule,delayed release(DR/EC) 20 mg PO BID aspirin 81 MG tablet,chewable 81 mg PO DAILY lisinopril 5 MG tablet 5 mg PO DAILY polyethylene glycol 3350 119 GM powder 17 g PO DAILY meclizine 25 MG tablet,chewable 25 mg PO TID PRN (Reason: Vertigo) Qty: 15 0RF ondansetron 4 MG tablet,disintegrating 4 mg PO Q6 PRN (Reason: Nausea) Qty: 10 0RF Referrals Follow up/Referrals: Tommy Schmidt MD [Primary Care Provider] - See instructions Activity Restrictions/Add. Instructions Additional Instructions/Restrictions: Please follow-up with your primary care doctor in about 2 to 3 days if you do not feel better. Return immediately to the emergency department if you feel worse in any way. Continue taking all medications as prescribed. Clinical Impressions Clinical Impression: Acute dyspnea Instructions Patient Instructions: DI for Shortness of Breath Discharge ED Provider: Shell Jacobs Resp/SOB HPI General Chief Complaint: Shortness of Breath/Dyspnea Stated Complaint: SOA Time Seen by Provider: 12/05/22 22:10 Mode of Arrival: Ambulatory Source of Information: Patient Limitations: No Limitations Description of Symptoms (Recalled from ER Triage Doc. by RN): Sister states he was at the [employer] and fell outside with no injuries. Patient then became short of breath, started 45 minutes ago. History of Present Illness The patient presents to the emergency department accompanied by some family members complaining of shortness of breath. He states that he fell about 8 PM tonight after stepping into a hole and tripping. He did not sustain any injuries. He denies any pain. About 45 minutes afterwards he started feeling shortness of breath. He denies a history of myocardial infarction, pulmonary emboli, DVTs, or fever or cough. Complaint: shortness of breath Related Data Home Medications Medication Instructions Recorded Confirmed aspirin 81 mg chewable tablet 81 mg PO DAILY heart 10/23/17 12/05/22 lisinopril 5 mg tablet 5 mg PO DAILY blood pressure 10/23/17 12/05/22 misoprostol 200 mcg tablet 200 mcg PO BID Arthritis 10/23/17 12/05/22 omeprazole 20 mg capsule,delayed 20 mg PO BID GERD 10/23/17 12/05/22 release polyethylene glycol 3350 17 17 g PO DAILY bowels 10/23/17 12/05/22 gram/dose oral powder primidone 50 mg tablet 200 mg PO BID shaking 10/23/17 12/05/22 propranolol 10 mg tablet 10 mg PO BID High blood pressure 01/31/19 12/05/22 levothyroxine 50 mcg tablet 50 mcg PO DAILY Cholesterol 09/04/20 12/05/22 finasteride 5 mg tablet 5 mg PO DAILY BPH 03/05/21 12/05/22 misoprostol 100 mcg tablet 100 mcg PO DAILY ulcer 03/05/21 12/05/22 Previous Rx's Medication Instructions Recorded meclizine 25 mg chewable tablet 25 mg PO TID PRN Vertigo #15 tabs 11/12/19 ondansetron 4 mg disintegrating 4 mg PO Q6 PRN Nausea ##10 11/12/19 tablet Allergies Allergy/AdvReac Type Severity Reaction Status Date / Time pregabalin [From Lyrica] Allergy Unknown Verified 09/29/22 09:28 [facility] Disclaimer: The information contained in this section may have been updated after the patient was seen, as this information can be updated by other users. Medical History Community acquired pneumonia Diarrhea Family History (Updated 12/05/22 @ 22:17 by Key Barr RN) Other No significant
[2022-12-05 23:32] LABS: WBC,Urine Occasional #/hpf (0-3)
[2022-12-05 23:39] VITALS: BP 144/74; PULSE 88; RESP 17; TEMP 36.7; O2SAT 95
== END 2022-12-05 23:41 | disposition home or self-care (01) ==
PROVIDERS: Emergency Medicine; Emergency Provider Emergency Medicine; PCP Internal Medicine Adolescent Medicine
DX: R06.02 Shortness of breath (principal); W17.2XXA Fall into hole, initial encounter; I49.1 Atrial premature depolarization
CPT/HCPCS: 36415; 71045; 80053; 81001; 83605; 84484; 85025; 87040; 93005; 99285

== ENCOUNTER 2023-08-28 14:59 | Outpatient (CLI) | payer MEDICARE, MEDICAID, SELFPAY ==
--- NOTE | 2023-08-28 15:11 | XR_ITS ---
FINAL REPORT CLINICAL HISTORY: LT LEG PAIN FINDINGS: LEFT KNEE 3 views of the left knee were obtained. There is no acute fracture or dislocation. Visualized joint spaces are normally aligned. Soft tissue swelling is seen anteriorly. IMPRESSION: No acute bony abnormality. Reviewed, Interpreted and Dictated by Clair Chen MD Transcribed by Soniya Montalvo Authenticated and [facility]
--- NOTE | 2023-08-28 15:12 | XR_ITS ---
FINAL REPORT CLINICAL HISTORY: PAIN IN LT LEG FINDINGS: LEFT TIBIA AND FIBULA There is no acute fracture or dislocation. The joint spaces are intact. There is no soft tissue abnormality. IMPRESSION: No acute fracture Reviewed, Interpreted and Dictated by Clair Chen MD Transcribed by Soniya Montalvo Authenticated and [facility]
--- NOTE | 2023-08-28 15:12 | XR_ITS ---
FINAL REPORT CLINICAL HISTORY: LT LEG PAIN FINDINGS: Two views show no evidence of an acute, displaced fracture or dislocation of the visualized bony architecture. The joint spaces appear normal. IMPRESSION: Unremarkable exam. Reviewed, Interpreted and Dictated by Clair Chen MD Transcribed by Soniya Montalvo Authenticated and [facility]
--- NOTE | 2023-08-28 15:13 | XR_ITS ---
FINAL REPORT CLINICAL HISTORY: SOA FINDINGS: 2 views of the chest were obtained . The heart is normal in size. The mediastinum is within normal limits. Vague density is seen at the left heart border which may represent atelectasis or scarring. There is no pneumothorax. Osseous structures are unremarkable. IMPRESSION: Atelectasis or scarring at the left heart border. Reviewed, Interpreted and Dictated by Clair Chen MD Transcribed by Soniya Montalvo Authenticated and [facility]
== END 2023-08-28 23:59 | disposition home or self-care (01) ==
LOC: RAD 15:02
PROVIDERS: PCP Internal Medicine Adolescent Medicine; Visit Provider Internal Medicine Adolescent Medicine
DX: M79.605 Pain in left leg (principal); R06.02 Shortness of breath
CPT/HCPCS: 71046; 73552; 73562; 73590

== ENCOUNTER 2023-09-11 13:54 | Outpatient (CLI) | payer MEDICARE, MEDICAID, SELFPAY ==
--- NOTE | 2023-09-11 | CA_ITS ---
APPROVED REPORT EXAM: Comprehensive 2D, Doppler, and color-flow Echocardiogram Line Patroller: Cristela Rdz RT(R) Ht: 5 ft 3 in Wt: 186lbs BSA: 1.88 BP: 140/90 mmHg Indications: SOB, HTN, KRUSE. Very limited scan secondary to patient cooperation and lung impedence. 2D Dimensions EF AP4 64.30 % GL Strain -10.0 % LV Diastology E Decel Time 150 (160-240 msec) E/A Ratio 0.9 Mitral Valve MV E Max Silvestre. 85.0 (40-130 cm/s) MV A Velocity 98.0 (40-130 cm/s) E/A Ratio 0.86 MV PHT 44.0 ms Left Ventricle The left ventricle is normal size. The left ventricular systolic function is normal. The left ventricular ejection fraction is within the normal range. There is increased LV wall thickness. Diastolic function is indeterminate. Regional wall motion cannot be estimated due to technically difficult study. LVEF is 50%. Right Ventricle The right ventricle is normal size. The right ventricular systolic function is normal. Atria The left atrium size is normal. The right atrium size is normal. The interatrial septum is not well-visualized. Aortic Valve The aortic valve is not well-visualized. Mitral Valve The mitral valve leaflets are mildly thickened. No evidence of mitral valve stenosis. There is no mitral valve regurgitation noted. Tricuspid Valve The tricuspid valve leaflets are thin and pliable. Trace tricuspid regurgitation. There is insufficient TR jet to estimate RVSP. Pulmonic Valve The pulmonic valve is not well-visualized. Great Vessels The aortic root is not well-visualized. The IVC is not well-visualized. Pericardium There is no pericardial effusion. Other Information Study Quality: Technically Difficult. Technically limited study due to lung disease. Conclusion Technically difficult study due to poor acoustic windows. Normal biventricular systolic function. No significant valvular stenosis of the TV or MV. The AV and PV are not well-visualized. Electronically signed by : Heather Arauz MD 09/15/2023 23:13:56
--- NOTE | 2023-09-11 13:58 | CT_ITS ---
FINAL REPORT TECHNIQUE: Axial images were obtained from the lung apex to the mid abdomen by computed tomography. Coronal reformatted images were obtained. This study was performed with techniques to keep radiation doses as low as reasonably achievable, (ALARA). Individualized dose reduction techniques using automated exposure control or adjustment of mA and/or kV according to the patient''s size were employed. CLINICAL HISTORY: PULMONARY FIBROSIS FINDINGS: There is diffuse thickening of the thoracic esophagus with questionable food or fluid within it. There is a moderate hiatal hernia. No mediastinal mass or adenopathy is identified. No axillary mass or adenopathy is seen.There is no pericardial or pleural effusion. A calcified granuloma is seen in the right upper lobe. There is lingular atelectasis or scarring. There is right lower lobe atelectasis or scarring. No evidence of pulmonary fibrosis is seen. There is no evidence of bronchiectasis or emphysema. The chest wall is intact.Limited images of the upper abdomen demonstrate postoperative changes from cholecystectomy. There is postoperative pneumobilia. There are small low-attenuation adrenal nodules are consistent with adenomas. IMPRESSION: Thickening of the thoracic esophagus with questionable food or fluid within it. This could be further evaluated with upper endoscopy. No evidence of pulmonary fibrosis. Small, low-attenuation adrenal nodules are consistent with adenomas. No additional follow-up is required. Reviewed, Interpreted and Dictated by Rudy Bowen III, MD Transcribed by Petra Lemus Authenticated and [facility]
== END 2023-09-11 23:59 | disposition home or self-care (01) ==
LOC: RAD 13:55
PROVIDERS: PCP Internal Medicine Adolescent Medicine; Visit Provider Internal Medicine Adolescent Medicine
DX: J84.10 Pulmonary fibrosis, unspecified (principal); R06.02 Shortness of breath
CPT/HCPCS: 71250; 93306

== ENCOUNTER 2023-10-16 07:59 | Outpatient (CLI) | payer MEDICARE, MEDICAID, SELFPAY ==
--- NOTE | 2023-10-16 08:05 | CT_ITS ---
FINAL REPORT TECHNIQUE: Multiple axial CT sections were performed from the foramen magnum to the vertex. Coronal reformatted images were also obtained. Precontrast and postcontrast injection images were obtained. This study was performed with technique to keep radiation doses as low as reasonably achievable, (ALARA). Individualized dose reduction techniques using automated exposure control or adjustment of mA and/or kV according to the patient size were employed. CLINICAL HISTORY: FALLS FINDINGS: There is age-appropriate atrophy with mild microvascular ischemic change. A left periventricular chronic lacunar infarct is noted. The ventricles are normal in size. There is no evidence of hemorrhage. No masses are identified. No extra-axial fluid collection is seen. The sinuses demonstrate mild mucosal thickening of the right maxillary sinus.. No osseous abnormality is seen on the bone window images. Postcontrast images demonstrate no abnormal enhancement. IMPRESSION: Chronic changes with age-appropriate atrophy with mild microvascular ischemic change. No acute intracranial abnormality. Reviewed, Interpreted and Dictated by Rudy Bowen III, MD Transcribed by Soniya Montalvo Authenticated and . [facility]
[2023-10-16 08:28] LABS: Blood Urea Nitrogen 39 mg/dl (9-20); Estimated Glomerular Filt Rate 37 ml/min (>60); GFR (African American) 45 ML/MIN (>60)
[2023-10-16] MEDS: IOPAMIDOL-300 (61%) 100ML VIAL 60 ML IV (09:01)
[2023-10-16] MEDS: SODIUM CHLORIDE 0.9% 10ML SYR (RAD ONLY) 10 ML IV (09:01)
--- NOTE | 2023-10-16 09:13 | CA_ITS ---
FINAL REPORT TECHNIQUE: Color Doppler, duplex Doppler and tamayo scale sonography of the bilateral neck arterial vasculature was performed. Velocities were measured in the carotid arteries. Stenosis evaluation based on the validated velocity criteria. CLINICAL HISTORY: FREQUENT FALLS,HTN,DIZZINESS FINDINGS: The peak systolic velocity of the right common carotid artery is 98 cm/s. The peak systolic velocity of the right internal carotid artery is 156cm/s and end diastolic velocity 47 cm/s. A small amount of plaque is present. The right external carotid artery is patent. The right vertebral artery is patent with antegrade flow. The peak systolic velocity of the left common carotid artery is 105 cm/s. The peak systolic velocity of the left internal carotid artery is 108 cm/s and end diastolic velocity 21 cm/s. A small amount of plaque is present. The left external carotid artery is patent.The left vertebral artery is patent with antegrade flow. IMPRESSION: Less than 50% bilateral carotid stenoses. Bilateral patent vertebral arteries with antegrade flow. If indicated, CTA or MRA could further evaluate. Reviewed, Interpreted and Dictated by Rudy Bowen III, MD Transcribed by Soniya Montalvo Authenticated and [facility]
== END 2023-10-16 23:59 | disposition home or self-care (01) ==
LOC: RAD 08:00
PROVIDERS: PCP Internal Medicine Adolescent Medicine; Visit Provider Internal Medicine Adolescent Medicine
DX: R27.0 Ataxia, unspecified (principal); R29.6 Repeated falls
CPT/HCPCS: 36415; 70470; 82565; 84520; 93880; Q9967